=== PATIENT | male | born 1940 | race Caucasian/White ===

== ENCOUNTER 2021-05-16 12:00 | Outpatient (CLI) | payer MEDICARE, BC ==
[~2021-05-16] VITALS: Ht 167.6 cm; Wt 74.8 kg
[2021-05-16] MEDS ORDERED: ROSU10TA2 PO (16:08)
[2021-05-16] MEDS ORDERED: PREN1TAB75 PO (16:08)
[2021-05-16] MEDS ORDERED: PSYL0.5244 PO (16:08)
[2021-05-16] MEDS ORDERED: LISI20TA28 PO (16:08)
[2021-05-16] MEDS ORDERED: ASPI81TA52 PO (16:08)
[2021-05-16] MEDS ORDERED: CLOP75TA15 PO (16:08)
[2021-05-16] MEDS ORDERED: HYDR4TAB45 PO (16:08)
[2021-05-16] MEDS ORDERED: CARV3.122 PO (16:08)
[2021-05-16 16:11] LABS: COLOR,URINE YELLOW (Yellow); GLUCOSE, URINE NEGATIVE (Neg); KETONES,URINE NEGATIVE (Neg); LEUKOCYTE ESTERASE ,URINE NEGATIVE (Neg); NITRITES, URINE NEGATIVE (Neg); OCCULT BLOOD,URINE NEGATIVE (Neg); PH,URINE 5.5 (4.8-8.0); PROTEIN,URINE TRACE mg/dl (Neg); UROBILINOGEN,URINE 0.2 E.U/dL (0.2-1.0)
[2021-05-16 16:19] LABS: PRE OP PROTIME 10.7 SECONDS (9.0-12.0)
[2021-05-16 16:20] LABS: BACTERIA,URINE FEW /HPF (Neg); CLARITY,URINE SLIGHTLY CLOUDY (Clear); RBC,URINE 0-2 /HPF (0-2); SQUAMOUS EPITHELIAL CELL,UR FEW /LPF (FEW); UA COLLECTION TYPE CLN CATCH MIDSTREAM
[2021-05-16 16:21] LABS: WBC CLUMPS,URINE FEW /HPF (NEGATIVE)
[2021-05-16 16:26] LABS: ALBUMIN 3.5 G/DL (3.4-5.0); ALBUMIN/GLOBULIN RATIO 1.2 (1.1-1.5); ALKALINE PHOSPHATASE 79 IU/L (46-116); BLOOD UREA NITROGEN 28 MG/DL (7-18); BUN/CREATININE RATIO 22.4 (5.4-32.0); CALCIUM 8.8 MG/DL (8.5-10.1); CHLORIDE 108 MMOL/L (99-107); CREATININE 1.25 MG/DL (0.60-1.10); PRE OP ALT 13 U/L (30-65); PRE OP ANION GAP 9 (8-16); PRE OP AST 13 U/L (10-37); PRE OP BILIRUB, TOTAL 0.2 MG/DL (0.0-1.0); PRE OP GLUCOSE 96 MG/DL (70-104); PRE OP POTASSIUM 4.6 MMOL/L (3.4-5.1); PRE OP SODIUM 143 MMOL/L (135-145); TOTAL CARBON DIOXIDE 26.1 MMOL/L (24-32); TOTAL PROTEIN 6.5 G/DL (6.4-8.2); eGFR 55 ML/MIN
[2021-05-17] MEDS ORDERED: LISI2.5T14 PO (15:35)
[2021-05-17] MEDS ORDERED: NITR0.4T51 SL (15:37)
[2021-05-18] MEDS ORDERED: ringers solution, lacted 1,000 ML IV SCH (05:00)
[2021-05-18] MEDS ORDERED: cefazolin/dext.iso 2gm/50ml IV ONE (05:30)
[2021-05-18] MEDS ORDERED: famotidine 20mg tablet PO ONE (05:30)
[2021-05-18] MEDS ORDERED: DOCUMENT DATE & TIME OF BETA-BLOCKER PO ONE (05:30)
[2021-05-18] MEDS ORDERED: midazolam 1 mg/ML 2ml injection ONE (07:13)
[2021-05-18] MEDS ORDERED: fentaNYL /PF 50mcg/ml 5ml ampule ONE (07:13)
[2021-05-18] MEDS ORDERED: dexamethasone sod phosphate 4mg/ml inj. ONE (07:14)
[2021-05-18] MEDS ORDERED: rocuronium 10mg/ml inj IV ONE (07:14)
[2021-05-18] MEDS ORDERED: LIDOcaine 2% (20mg/ml) 5ml vial ONE (07:14)
[2021-05-18] MEDS ORDERED: propofol inj 20 ML IV ONE (07:14)
[2021-05-18] MEDS ORDERED: ondansetron/PF 4mg/2ml inj ONE (07:15)
[2021-05-18] MEDS ORDERED: albumin (Human) 5% 250ml 250 ML IV ONE ×2 (07:15)
[2021-05-18] MEDS ORDERED: BUPIVACAINE liposomal/PF 13.3 MG/ML vial IM ONE (07:26)
[2021-05-18] MEDS ORDERED: BUPIVAcaine 0.5% inj/PF 30 ML ONE (07:26)
[2021-05-18] MEDS ORDERED: labetalol 20mg/4ml (5mg/ml) syringe IV ONE (08:14)
[2021-05-18] MEDS ORDERED: glycopyrrolate 0.2mg/ml inj ONE (08:33)
[2021-05-18] MEDS ORDERED: neostigmine methylsulfate 1 MG/ML 10ml vial ONE (08:33)
[2021-05-18] MEDS ORDERED: morphine 10mg/ml inj. ONE (08:50)
[2021-05-18] MEDS ORDERED: morphine 4 MG/ML inj SYRINge ONE ×3 (08:59→09:15)
[2021-05-18] MEDS ORDERED: fentaNYL/PF 50MCG/1 ML 2ML syringe ONE (09:03)
== END 2021-05-16 23:59 | disposition home or self-care (01) ==
LOC: PRE-OP 12:00 → EDSTATUS 05-18 12:15
PROVIDERS: ATTEND Surgery
DX: Z01.812 Encounter for preprocedural laboratory examination (principal); Z20.822 Contact with and (suspected) exposure to COVID-19
CPT/HCPCS: 36415; 80053; 81001; 85610; 85730; 86885; 86900; 86901; 86920; 87081; 87088; 87635; C9290; J0690; J1100; J2250; J2270; J2274; J2405; J2704; J2710; J3010; J3490; J7120; P9045; S0020

== ENCOUNTER 2021-05-17 12:38 | Inpatient (IN) | payer MEDICARE, BC ==
[~2021-05-17] VITALS: Ht 170.2 cm; Wt 76.2 kg
[~2021-05-17 12:38] MED LIST: ASPI81TA52 PO; CARV3.122 PO; CLOP75TA15 PO; HYDR4TAB45 PO; LISI20TA28 PO; PREN1TAB75 PO; PSYL0.5244 PO; ROSU10TA2 PO
[2021-05-17 13:18] LABS: BASOPHILS # (AUTO) 0.1 X10'3 (0-0.2); EOSINOPHILS # (AUTO) 0.2 X10'3 (0-0.9); EOSINOPHILS % (AUTO) 3.9 % (0-6); LYMPHOCYTES # (AUTO) 0.6 X10'3 (1.1-4.8); LYMPHOCYTES % (AUTO) 13.3 % (21-51); MEAN CORPUSCULAR HEMOGLOBIN 24.8 PG (27.0-31.0); MEAN CORPUSCULAR HGB CONC 31.6 g/dL (33.0-36.5); MEAN CORPUSCULAR VOLUME 78.5 FL (78-98); MONOCYTES # (AUTO) 0.5 X10'3 (0-0.9); MONOCYTES % (AUTO) 12.4 % (2-12); NEUTROPHILS # (AUTO) 2.9 X10'3 (1.8-7.7); NEUTROPHILS % (AUTO) 68.4 % (42-75); PLATELET COUNT 401 X10'3 (140-440); RED BLOOD COUNT 2.65 X10'6 (4.70-6.10); RED CELL DISTRIBUTION WIDTH 21.9 % (11.5-14.5); WHITE BLOOD COUNT 4.3 X10'3 (4.5-11.0)
[2021-05-17 13:20] LABS: HEMATOCRIT 20.8 % (42.0-52.0); HEMOGLOBIN 6.6 g/dl (14.0-17.9)
[2021-05-17 13:31] LABS: APTT 26 SECONDS (22-32)
[2021-05-17 13:48] LABS: ANISOCYTOSIS 3+; ELLIPTOCYTES 1+; PLATELET ESTIMATE NORMAL; POIKILOCYTOSIS 1+
[2021-05-17 13:49] LABS: ACANTHOCYTES 1+; HYPOCHROMASIA 1+; MICROCYTOSIS 2+; SCHISTOCYTES FEW
[2021-05-17 14:09] LABS: ALANINE AMINOTRANSFERASE 12 U/L (12-78); ALBUMIN 3.5 G/DL (3.4-5.0); ALBUMIN/GLOBULIN RATIO 1.2 (1.1-1.5); ALKALINE PHOSPHATASE 80 IU/L (46-116); ANION GAP 9 (8-16); ASPARTATE AMINO TRANSFERASE 13 U/L (10-37); BILIRUBIN,TOTAL 0.3 MG/DL (0.1-1.0); BLOOD UREA NITROGEN 25 MG/DL (7-18); BUN/CREATININE RATIO 19.8 (5.4-32.0); CALCIUM 8.6 MG/DL (8.5-10.1); CHLORIDE 106 MMOL/L (99-107); CREATININE 1.26 MG/DL (0.60-1.10); GLUCOSE 86 MG/DL (70-104); POTASSIUM 4.5 MMOL/L (3.5-5.1); SODIUM 140 MMOL/L (135-145); TOTAL CARBON DIOXIDE 25.3 MMOL/L (24-32); TOTAL PROTEIN 6.5 G/DL (6.4-8.2); eGFR 55 ML/MIN
[2021-05-17] MEDS ORDERED: PEG 3350/Na sulf,bicarb,Cl/KCl oral sol 4 liter bottle PO ONE (15:05)
[2021-05-17] MEDS ORDERED: LISI2.5T14 PO (15:35)
[2021-05-17] MEDS ORDERED: NITR0.4T51 SL (15:37)
[2021-05-17 15:46] VITALS: BP 119/62
[2021-05-17 16:00] VITALS: BP 127/58
[2021-05-17] MEDS ORDERED: mag hydrox/Alum hydrox/simeth 30ml oral suspension PO PRN (16:50)
[2021-05-17] MEDS ORDERED: magnesium Cl slow-release 64mg tablet PO PRN (16:50)
[2021-05-17] MEDS ORDERED: acetaminophen 325mg tablet PO PRN ×2 (16:50)
[2021-05-17] MEDS ORDERED: potassium CL 10mEq/100ml bag 100 ML IV PRN (16:50)
[2021-05-17] MEDS ORDERED: nitroGLYCERIN 0.4mg SUBLingual tab SL PRN (16:50)
[2021-05-17] MEDS ORDERED: magnesium 2GM in 50ml NS 50 ML IV PRN (16:50)
[2021-05-17] MEDS ORDERED: HYDROcodone/acetaminophen 10/325mg tab PO PRN (16:50)
[2021-05-17] MEDS ORDERED: PERFLUTREN PROTEIN-A MICROSPHR (Optison) 0.22 MG/ML 3ML VIAL IV PRN (16:50)
[2021-05-17] MEDS ORDERED: potassium Cl 20 mEq SR tablet PO PRN ×2 (16:50)
[2021-05-17] MEDS ORDERED: HYDROcodone/acetaminophen 5mg/325mg tablet PO PRN (16:50)
[2021-05-17] MEDS ORDERED: magnesium 4gm in 100ml NS 100 ML IV PRN (16:50)
[2021-05-17] MEDS ORDERED: magnesium hydroxide 30ml (MOM) UD suspension PO PRN (16:50)
[2021-05-17] MEDS ORDERED: morphine 2 MG/ML inj. syringe IV PRN (16:50)
[2021-05-17] MEDS ORDERED: HYDROmorphone 2mg tablet PO PRN (17:00)
[2021-05-17 17:11] VITALS: BP 129/62
[2021-05-17 17:29] LABS: HEMOGLOBIN A1C 5.3 % (4.5-6.2)
[2021-05-17] MEDS: normal saline 1000ml 1,000 ML IV SCH ×2 (17:33→20:56)
[2021-05-17 17:54] LABS: CLARITY,URINE CLEAR (Clear); COLOR,URINE YELLOW (Yellow); GLUCOSE, URINE NEGATIVE (Neg); KETONES,URINE NEGATIVE (Neg); LEUKOCYTE ESTERASE ,URINE SMALL (Neg); NITRITES, URINE NEGATIVE (Neg); OCCULT BLOOD,URINE NEGATIVE (Neg); PROTEIN,URINE NEGATIVE (Neg); UROBILINOGEN,URINE 0.2 E.U/dL (0.2-1.0)
[2021-05-17 18:02] LABS: UA COLLECTION TYPE URINAL
[2021-05-17 18:08] LABS: BACTERIA,URINE 1+ /HPF (Neg); RBC,URINE NONE SEEN /HPF (0-2); SQUAMOUS EPITHELIAL CELL,UR FEW /LPF (FEW); WBC,URINE 0-4 /HPF (0-4)
[2021-05-17 20:00] VITALS: BP 133/54
[2021-05-17] MEDS: K and/or MAG REPLACEMENT MC SCH (20:00)
--- NOTE | 2021-05-17 20:00 | NUR ---
Patient transfer from ER to PCU in a stable condition, vital signs stable oriented to room call light within reach bed in lower position will continue to monitor and report changes
[2021-05-17] MEDS: docusate sod 100mg capsule PO SCH (20:55)
[2021-05-17] MEDS: carVEDilol 3.125mg tablet PO SCH (20:55)
[2021-05-17 21:13] LABS: HEMATOCRIT 24.5 % (42.0-52.0); HEMOGLOBIN 7.9 g/dl (14.0-17.9); MEAN CORPUSCULAR HEMOGLOBIN 25.6 PG (27.0-31.0); MEAN CORPUSCULAR HGB CONC 32.2 g/dL (33.0-36.5); MEAN CORPUSCULAR VOLUME 79.6 FL (78-98); MEAN PLATELET VOLUME 7.3 FL (7.4-10.4); PLATELET COUNT 382 X10'3 (140-440); RED BLOOD COUNT 3.08 X10'6 (4.70-6.10); RED CELL DISTRIBUTION WIDTH 21.1 % (11.5-14.5); WHITE BLOOD COUNT 4.8 X10'3 (4.5-11.0)
[2021-05-17 22:00] VITALS: BP 112/45
[2021-05-18] VITALS (17 sets, daily range): BP systolic 133–181; BP diastolic 63–96
[2021-05-18] MEDS: CefTRIAXone/D5W-Rocephin 1gm 100 ML IV SCH ×2 (01:47→20:08)
[2021-05-18] MEDS: morphine 2 MG/ML inj. syringe IV PRN (01:55)
[2021-05-18 03:30] LABS: BASOPHILS # (AUTO) 0.1 X10'3 (0-0.2); BASOPHILS % (AUTO) 1.5 % (0-1); EOSINOPHILS # (AUTO) 0.2 X10'3 (0-0.9); EOSINOPHILS % (AUTO) 3.5 % (0-6); HEMATOCRIT 22.8 % (42.0-52.0); HEMOGLOBIN 7.2 g/dl (14.0-17.9); LYMPHOCYTES # (AUTO) 0.6 X10'3 (1.1-4.8); LYMPHOCYTES % (AUTO) 12.6 % (21-51); MEAN CORPUSCULAR HEMOGLOBIN 25.1 PG (27.0-31.0); MEAN CORPUSCULAR HGB CONC 31.8 g/dL (33.0-36.5); MEAN PLATELET VOLUME 7.4 FL (7.4-10.4); MONOCYTES # (AUTO) 0.6 X10'3 (0-0.9); MONOCYTES % (AUTO) 13.7 % (2-12); NEUTROPHILS # (AUTO) 3.1 X10'3 (1.8-7.7); NEUTROPHILS % (AUTO) 68.7 % (42-75); PLATELET COUNT 354 X10'3 (140-440); RED BLOOD COUNT 2.88 X10'6 (4.70-6.10); RED CELL DISTRIBUTION WIDTH 21.2 % (11.5-14.5); WHITE BLOOD COUNT 4.5 X10'3 (4.5-11.0)
[2021-05-18 03:54] LABS: ALANINE AMINOTRANSFERASE 12 U/L (12-78); ALBUMIN 3.1 G/DL (3.4-5.0); ALBUMIN/GLOBULIN RATIO 1.1 (1.1-1.5); ANION GAP 15 (8-16); ASPARTATE AMINO TRANSFERASE 16 U/L (10-37); BILIRUBIN,TOTAL 0.3 MG/DL (0.1-1.0); BLOOD UREA NITROGEN 20 MG/DL (7-18); BUN/CREATININE RATIO 17.5 (5.4-32.0); CALCIUM 8.2 MG/DL (8.5-10.1); CHLORIDE 108 MMOL/L (99-107); CHOL/HDL RATIO 1.9 (0.00-4.99); CHOLESTEROL 96 MG/DL (0-200); CREATININE 1.14 MG/DL (0.60-1.10); GLUCOSE 87 MG/DL (70-104); HDL CHOLESTEROL 51 MG/DL (35-60); LDL CHOLESTEROL 36 MG/DL (50-100); MAGNESIUM 1.9 MG/DL (1.5-2.4); PHOSPHORUS 2.6 MG/DL (2.3-4.5); SODIUM 146 MMOL/L (135-145); TOTAL CARBON DIOXIDE 23.5 MMOL/L (24-32); TOTAL PROTEIN 5.8 G/DL (6.4-8.2); TRIGLYCERIDES 51 MG/DL (20-135); eGFR 61 ML/MIN
[2021-05-18 05:05] LABS: LARGE PLATELETS FEW; PLATELET ESTIMATE NORMAL
[2021-05-18 05:06] LABS: HYPOCHROMASIA 1+
[2021-05-18 05:07] LABS: ANISOCYTOSIS 3+; MICROCYTOSIS 1+; POIKILOCYTOSIS 1+
[2021-05-18 05:08] LABS: SCHISTOCYTES FEW
[2021-05-18 05:09] LABS: ACANTHOCYTES 1+
--- NOTE | 2021-05-18 06:49 | NUR ---
Problems reprioritized. Patient report given, questions answered & plan of care reviewed with Evelin RN .
[2021-05-18] MEDS ORDERED: labetalol 20mg/4ml (5mg/ml) syringe IV PRN (07:10)
[2021-05-18] MEDS ORDERED: ondansetron/PF 4mg/2ml inj IV PRN (07:10)
[2021-05-18] MEDS ORDERED: hydrALAZINE 20mg/ml inj. IV PRN (07:10)
[2021-05-18] MEDS ORDERED: fentaNYL/PF 50MCG/1 ML 2ML syringe IV PRN ×2 (07:10)
[2021-05-18] MEDS ORDERED: ringers solution, lacted 1,000 ML IV SCH (07:10)
[2021-05-18] MEDS ORDERED: morphine 2 MG/ML inj. syringe IV PRN (07:10)
[2021-05-18] MEDS ORDERED: morphine 10mg/ml inj. ONE (07:25)
[2021-05-18] MEDS ORDERED: dexamethasone sod phosphate 10mg/ml inj ONE (07:25)
[2021-05-18] MEDS ORDERED: cefazolin/dext.iso 2,000MG/50 ML BAG IV ONE (07:25)
[2021-05-18] MEDS ORDERED: ondansetron/PF 4mg/2ml inj ONE (07:25)
[2021-05-18] MEDS ORDERED: propofol 10mg/ml 20ml vial IV ONE (07:25)
[2021-05-18] MEDS ORDERED: neostigmine methylsulfate 1 MG/ML 10ml vial ONE (07:25)
[2021-05-18] MEDS ORDERED: labetalol 20mg/4ml (5mg/ml) syringe IV ONE (07:25)
[2021-05-18] MEDS ORDERED: glycopyrrolate 0.2mg/ml inj ONE (07:25)
[2021-05-18] MEDS ORDERED: sevoflurane 250ml liquid IH ONE (07:25)
[2021-05-18] MEDS ORDERED: fentaNYL /PF 50mcg/ml 5ml ampule ONE (07:25)
[2021-05-18] MEDS ORDERED: LIDOcaine 2% (20mg/ml) 5ml vial ONE (07:25)
[2021-05-18] MEDS ORDERED: midazolam 1 mg/ML 2ml injection ONE (07:25)
[2021-05-18] MEDS ORDERED: albumin (Human) 5% 250ml BOTTLE IV ONE (07:25)
[2021-05-18] MEDS: psyllium seed 3.4 gm packet PO SCH (08:00)
[2021-05-18] MEDS: lisinopril 2.5mg tablet PO SCH (08:00)
[2021-05-18] MEDS: atorvastatin 20mg tablet PO SCH (08:00)
[2021-05-18] MEDS: K and/or MAG REPLACEMENT MC SCH ×2 (08:00→20:00)
[2021-05-18] MEDS: docusate sod 100mg capsule PO SCH ×2 (08:00→20:08)
[2021-05-18] MEDS: carVEDilol 3.125mg tablet PO SCH ×2 (08:00→20:08)
[2021-05-18] MEDS: multivitamins, therapeutics tablet PO SCH (08:00)
--- NOTE | 2021-05-18 08:56 | NUR ---
Received from OR via BED , accompanied by Anesthesiologist KARRIE and report given by Anesthesiolgist.
[2021-05-18] MEDS: morphine 4 MG/ML inj SYRINge IV PRN ×3 (09:02→09:19)
[2021-05-18] MEDS ORDERED: naloxone 0.4 mg/ml inj IV PRN (09:15)
--- NOTE | 2021-05-18 09:45 | NUR ---
10 LITERS WITH MASK 02, RIGHT FOREARM 18 GUAGE INTACT, ISLAND DRESSING SPOTTY, WILL CONTINUE TO ASSESS, F/C, IN A LOT OF PAIN ADMIN PAIN MEDS AND ASSESSING CONTINUALLY. CALLED DR HANDLEY FOR AN ORDER OF DILAUDID FELT PULLER 100MG. WAITING FOR CADD TO BE DELIVERED. CALLED PHARMACY TO CHECK ON PAIN MED, STILL WAITING. Addendum: 05/18/21 at 0950 by Adina Ortiz RN Amended: Links added.
[2021-05-18] MEDS ORDERED: meperidine/PF 25mg/ml syringe IV PRN (09:55)
[2021-05-18] MEDS ORDERED: acetaminophen 1,000mg/100ml IV 100 ML IV PRN (09:55)
[2021-05-18] MEDS: HYDROmorph./NS 0.2 mg/ml CADD 100 ML IV SCH (10:14)
--- NOTE | 2021-05-18 10:32 | NUR ---
CALLED REPORT TO LUCERO AT 1025. VSThomas, ON 2 LITERS 02 AT 98%, PATIENTS BELONGINGS WITH HIM, ALL QUESTIONS ANSWERED. Addendum: 05/18/21 at 1034 by Adina Ortiz RN Amended: Links added.
--- NOTE | 2021-05-18 10:36 | NUR ---
TRANSFER: PATIENT HAS MET ALL CRITERIA FOR TRANSFER TO THE PCU/FLOOR. VSS. DRESSINGS INTACT. BED LOW, CALL LIGHT PRESENT AND 2 RAILS UP. RN PRESENT TO ACCEPT CARE OF PATIENT AND REPORT HAS BEEN CALLED. ALL QUESTIONS ANSWERED TO ACCEPTING RN. FLOAT NURSE NOT AVAILABLE, LET CHARGE NURSE KNOW THE IMPORTANCE OF PUSHING IS Q 1 HR WHILE AWAKE. Addendum: 05/18/21 at 1059 by Adina Ortiz RN Amended: Links added.
[2021-05-18 12:37] LABS: MEAN CORPUSCULAR HEMOGLOBIN 25.1 PG (27.0-31.0); MEAN CORPUSCULAR HGB CONC 31.1 g/dL (33.0-36.5); MEAN CORPUSCULAR VOLUME 80.7 FL (78-98); MEAN PLATELET VOLUME 7.5 FL (7.4-10.4); PLATELET COUNT 445 X10'3 (140-440); RED BLOOD COUNT 2.67 X10'6 (4.70-6.10); RED CELL DISTRIBUTION WIDTH 21.4 % (11.5-14.5); WHITE BLOOD COUNT 15.9 X10'3 (4.5-11.0)
[2021-05-18 12:45] LABS: HEMATOCRIT 21.5 % (42.0-52.0); HEMOGLOBIN 6.7 g/dl (14.0-17.9)
--- NOTE | 2021-05-18 13:43 | NUR ---
Malnutrition Consult: Pt admit DX anemia w/ colon CA s/p open resection of ascending colon today per EMR. NPO at this time though would benefit from advancement to low-residue diet as medically indicated post-op. Pt reports 2-13 pounds wt loss per RN Malnutrition Screen. Pt has normal strength, no edema/wounds, appears WD/WN per ER note, and pending scaled wt this admit w/ no prior wt hx in EMR. Pt lacks minimum malnutrition criteria at this time. Will monitor for further malnutrition criteria this admit. Addendum: 05/18/21 at [address] Amended: Links added.
--- NOTE | 2021-05-18 17:15 | NUR ---
Pt went to surgery this am. Notice 2uPRBC held for surgery but not given. Pt HCT 21.5 , HGL 6.7. Page/text regarding orders needed for possible transfusion. Awaiting orders
[2021-05-18] MEDS: normal saline 1000ml 1,000 ML IV SCH (19:30)
[2021-05-19] VITALS (16 sets, daily range): BP systolic 112–166; BP diastolic 43–96
[2021-05-19] MEDS: HYDROmorph./NS 0.2 mg/ml CADD 100 ML IV SCH ×9 (01:00→23:00)
[2021-05-19] MEDS: morphine 2 MG/ML inj. syringe IV PRN ×2 (02:10→08:42)
[2021-05-19] MEDS: metroNIDAZOLE-Flagyl 500mg/NS 100 ML IV SCH ×3 (02:38→20:00)
[2021-05-19 06:37] LABS: BASOPHILS % (AUTO) 0.2 % (0-1); EOSINOPHILS % (AUTO) 0 % (0-6); LYMPHOCYTES # (AUTO) 0.5 X10'3 (1.1-4.8); LYMPHOCYTES % (AUTO) 5.6 % (21-51); MEAN CORPUSCULAR HGB CONC 32.4 g/dL (33.0-36.5); MEAN CORPUSCULAR VOLUME 80.4 FL (78-98); MEAN PLATELET VOLUME 7.5 FL (7.4-10.4); MONOCYTES # (AUTO) 1.2 X10'3 (0-0.9); NEUTROPHILS # (AUTO) 6.5 X10'3 (1.8-7.7); NEUTROPHILS % (AUTO) 79.2 % (42-75); PLATELET COUNT 398 X10'3 (140-440); RED BLOOD COUNT 2.35 X10'6 (4.70-6.10); RED CELL DISTRIBUTION WIDTH 21.6 % (11.5-14.5); WHITE BLOOD COUNT 8.2 X10'3 (4.5-11.0)
--- NOTE | 2021-05-19 06:39 | NUR ---
Problems reprioritized. Patient report given, questions answered & plan of care reviewed with Deann RODRIGUEZ .
[2021-05-19 07:04] LABS: HEMATOCRIT 18.9 % (42.0-52.0); HEMOGLOBIN 6.1 g/dl (14.0-17.9)
--- NOTE | 2021-05-19 07:06 | NUR ---
3029 Jose: Critical labs reported. Hemoglobin 6.1, htc 18.9. made aware of findings.
[2021-05-19 07:15] LABS: ALANINE AMINOTRANSFERASE 14 U/L (12-78); ALBUMIN 3.1 G/DL (3.4-5.0); ALBUMIN/GLOBULIN RATIO 1.2 (1.1-1.5); ALKALINE PHOSPHATASE 59 IU/L (46-116); ANION GAP 16 (8-16); ASPARTATE AMINO TRANSFERASE 21 U/L (10-37); BILIRUBIN,TOTAL 0.2 MG/DL (0.1-1.0); BLOOD UREA NITROGEN 26 MG/DL (7-18); BUN/CREATININE RATIO 18.8 (5.4-32.0); CALCIUM 7.8 MG/DL (8.5-10.1); CHLORIDE 111 MMOL/L (99-107); CREATININE 1.38 MG/DL (0.60-1.10); GLUCOSE 122 MG/DL (70-104); PHOSPHORUS 3.8 MG/DL (2.3-4.5); POTASSIUM 4.3 MMOL/L (3.5-5.1); SODIUM 144 MMOL/L (135-145); TOTAL CARBON DIOXIDE 17.3 MMOL/L (24-32); TOTAL PROTEIN 5.6 G/DL (6.4-8.2); eGFR 49 ML/MIN
[2021-05-19] MEDS ORDERED: aspirin 81mg, enteric-coated 1 TAB TABLET.DR PO SCH (08:00)
[2021-05-19] MEDS ORDERED: clopidogrel 75mg tablet PO SCH (08:00)
[2021-05-19] MEDS: K and/or MAG REPLACEMENT MC SCH ×2 (08:00→20:00)
[2021-05-19] MEDS: psyllium seed 3.4 gm packet PO SCH (09:26)
[2021-05-19] MEDS: carVEDilol 3.125mg tablet PO SCH ×2 (09:27→20:00)
[2021-05-19] MEDS: lisinopril 2.5mg tablet PO SCH (09:27)
[2021-05-19] MEDS: atorvastatin 20mg tablet PO SCH (09:27)
[2021-05-19] MEDS: multivitamins, therapeutics tablet PO SCH (09:27)
[2021-05-19] MEDS: docusate sod 100mg capsule PO SCH ×2 (09:28→20:00)
[2021-05-19 09:30] LABS: ANISOCYTOSIS 3+; PLATELET ESTIMATE NORMAL; TOTAL CELLS COUNTED 100
[2021-05-19 09:31] LABS: BURR CELLS 2+; ELLIPTOCYTES 2+
[2021-05-19 09:36] LABS: POLYCHROMASIA 2+
[2021-05-19 09:37] LABS: TEAR DROP CELLS FEW
[2021-05-19 16:27] LABS: HEMOGLOBIN 8.8 g/dl (14.0-17.9); MEAN CORPUSCULAR HEMOGLOBIN 26.7 PG (27.0-31.0); MEAN CORPUSCULAR HGB CONC 32.6 g/dL (33.0-36.5); MEAN CORPUSCULAR VOLUME 81.9 FL (78-98); MEAN PLATELET VOLUME 7.4 FL (7.4-10.4); PLATELET COUNT 311 X10'3 (140-440); RED CELL DISTRIBUTION WIDTH 19.8 % (11.5-14.5); WHITE BLOOD COUNT 9.2 X10'3 (4.5-11.0)
[2021-05-19] MEDS: ondansetron/PF 4mg/2ml inj IV PRN (17:16)
[2021-05-19] MEDS: CefTRIAXone/D5W-Rocephin 1gm 100 ML IV SCH (20:00)
[2021-05-19] MEDS: sodium bicarbonate (8.4%) inj. 100 MEQ in dextrose 5%-water 1,000 ML IV SCH (23:05)
[2021-05-19] MEDS: CADD PCA waste documentation MC PRN (23:49)
[2021-05-20] MEDS ORDERED: HYDROmorphone (Dilaudid)/NS 0.2 mg/ml 100ml CADD ONE (00:06)
[2021-05-20] MEDS: HYDROmorph./NS 0.2 mg/ml CADD 100 ML IV SCH ×13 (00:06→23:00)
[2021-05-20 02:00] VITALS: BP 155/80
[2021-05-20 06:00] VITALS: BP 146/77
--- NOTE | 2021-05-20 06:27 | NUR ---
Problems reprioritized. Patient report given, questions answered & plan of care reviewed with Billie.
--- NOTE | 2021-05-20 06:30 | NUR ---
Patient in room PCU 3021. I have received report from [place] and had the opportunity to ask questions and assume patient care.
[2021-05-20] MEDS: K and/or MAG REPLACEMENT MC SCH ×2 (08:00→20:00)
[2021-05-20] MEDS: sodium bicarbonate (8.4%) inj. 100 MEQ in dextrose 5%-water 1,000 ML IV SCH ×2 (08:14→10:05)
[2021-05-20] MEDS: metroNIDAZOLE-Flagyl 500mg/NS 100 ML IV SCH ×2 (08:18→19:50)
[2021-05-20] MEDS: atorvastatin 20mg tablet PO SCH (08:22)
[2021-05-20] MEDS: multivitamins, therapeutics tablet PO SCH (08:22)
[2021-05-20] MEDS: carVEDilol 3.125mg tablet PO SCH ×2 (08:22→19:49)
[2021-05-20] MEDS: clopidogrel 75mg tablet PO SCH (08:22)
[2021-05-20] MEDS: aspirin 81mg, enteric-coated 1 TAB TABLET.DR PO SCH (08:22)
[2021-05-20] MEDS: docusate sod 100mg capsule PO SCH ×2 (08:23→19:49)
[2021-05-20] MEDS: lisinopril 2.5mg tablet PO SCH (08:23)
[2021-05-20] MEDS: psyllium seed 3.4 gm packet PO SCH (08:23)
[2021-05-20 08:24] LABS: BASOPHILS % (AUTO) 0.3 % (0-1); EOSINOPHILS % (AUTO) 0.1 % (0-6); HEMATOCRIT 26.5 % (42.0-52.0); HEMOGLOBIN 8.5 g/dl (14.0-17.9); LYMPHOCYTES # (AUTO) 0.4 X10'3 (1.1-4.8); LYMPHOCYTES % (AUTO) 3.1 % (21-51); MEAN CORPUSCULAR HEMOGLOBIN 26.1 PG (27.0-31.0); MEAN CORPUSCULAR HGB CONC 32.1 g/dL (33.0-36.5); MEAN CORPUSCULAR VOLUME 81.3 FL (78-98); MEAN PLATELET VOLUME 7.7 FL (7.4-10.4); MONOCYTES # (AUTO) 0.9 X10'3 (0-0.9); NEUTROPHILS # (AUTO) 10.4 X10'3 (1.8-7.7); NEUTROPHILS % (AUTO) 88.5 % (42-75); PLATELET COUNT 329 X10'3 (140-440); RED BLOOD COUNT 3.26 X10'6 (4.70-6.10); RED CELL DISTRIBUTION WIDTH 19.8 % (11.5-14.5); WHITE BLOOD COUNT 11.7 X10'3 (4.5-11.0)
[2021-05-20 08:43] LABS: ALANINE AMINOTRANSFERASE 17 U/L (12-78); ALBUMIN 2.7 G/DL (3.4-5.0); ALBUMIN/GLOBULIN RATIO 1.2 (1.1-1.5); ALKALINE PHOSPHATASE 57 IU/L (46-116); ANION GAP 12 (8-16); ASPARTATE AMINO TRANSFERASE 24 U/L (10-37); BILIRUBIN,TOTAL 0.4 MG/DL (0.1-1.0); BLOOD UREA NITROGEN 22 MG/DL (7-18); BUN/CREATININE RATIO 18.2 (5.4-32.0); CALCIUM 7.8 MG/DL (8.5-10.1); CHLORIDE 109 MMOL/L (99-107); CREATININE 1.21 MG/DL (0.60-1.10); GLUCOSE 104 MG/DL (70-104); MAGNESIUM 1.8 MG/DL (1.5-2.4); PHOSPHORUS 2.6 MG/DL (2.3-4.5); POTASSIUM 3.8 MMOL/L (3.5-5.1); SODIUM 144 MMOL/L (135-145); TOTAL CARBON DIOXIDE 22.8 MMOL/L (24-32); eGFR 57 ML/MIN
[2021-05-20] MEDS: ondansetron/PF 4mg/2ml inj IV PRN (08:45)
--- NOTE | 2021-05-20 10:02 | NUR ---
Pt vomitted coffee ground emesis during medpass. Zofran administered. MD Magallon informed and ordered protonix drip.
[2021-05-20 11:00] VITALS: BP 123/79
[2021-05-20 15:00] VITALS: BP 131/74
[2021-05-20 18:00] VITALS: BP 135/75
[2021-05-20] MEDS: pantoprazole 40MG/NS 100ML BAG 100 ML IV SCH ×3 (18:28→22:10)
--- NOTE | 2021-05-20 18:31 | NUR ---
Patient in room PCU 3021. I have received report from PILAR RODRIGUEZ and had the opportunity to ask questions and assume patient care.
[2021-05-20] MEDS: CefTRIAXone/D5W-Rocephin 1gm 100 ML IV SCH (19:33)
[2021-05-20 22:00] VITALS: BP 134/74
[2021-05-21] VITALS (9 sets, daily range): BP systolic 136–149; BP diastolic 69–77
[2021-05-21] MEDS: HYDROmorph./NS 0.2 mg/ml CADD 100 ML IV SCH ×12 (01:00→23:00)
--- NOTE | 2021-05-21 01:42 | NUR ---
PT SITTING UP ON EDGE OF BED, STATED "EVERYTIME I CLOSE MY EYES I THINK ABOUT DYING". DID NOT ADD MORE TO THIS AND DENIED NEED TO DISCUSS FURTHER WHEN I OFFERED. DENIES NEED TO VOID, HAS BEEN CLOSE TO 8 HRS SINCE F/C DISCONTINUED ON EARLY SHIFT. BLADDER SCANNED FOR 111ML'S. WILL CONTINUE TO MONITOR. PT STATED "HAVING FLATUS". CALL LIGHT IN REACH.
[2021-05-21] MEDS: pantoprazole 40MG/NS 100ML BAG 100 ML IV SCH ×5 (02:45→23:00)
--- NOTE | 2021-05-21 06:21 | NUR ---
REPORT GIVEN TO PILAR RODRIGUEZ, PATIENT HAD 2 VERY SMALL "BM'S", THOUGH MOSTLY BRIGHT RED BLOOD WITH SMALL AMT OF STOOL. APPROX AMT 20ML. HAVE PATIENT ON BEDPAN NOW HE STATED HE FEELS LIKE HE MAY HAVE ANOTHER BM. HAVE REPORTED THIS TO MICHAEL.
--- NOTE | 2021-05-21 06:34 | NUR ---
Problems reprioritized. Patient report given, questions answered & plan of care reviewed with Suzie RODRIGUEZ.
--- NOTE | 2021-05-21 06:35 | NUR ---
Problems reprioritized. Patient report given, questions answered & plan of care reviewed with MICHAEL Zacarias.
[2021-05-21] MEDS: K and/or MAG REPLACEMENT MC SCH ×2 (08:00→20:00)
[2021-05-21] MEDS: docusate sod 100mg capsule PO SCH ×2 (08:00→20:00)
[2021-05-21] MEDS: psyllium seed 3.4 gm packet PO SCH (08:00)
[2021-05-21] MEDS: aspirin 81mg, enteric-coated 1 TAB TABLET.DR PO SCH (08:00)
[2021-05-21] MEDS: clopidogrel 75mg tablet PO SCH (08:00)
[2021-05-21 08:10] LABS: BASOPHILS # (AUTO) 0.1 X10'3 (0-0.2); EOSINOPHILS % (AUTO) 0.4 % (0-6); HEMATOCRIT 25.1 % (42.0-52.0); HEMOGLOBIN 7.9 g/dl (14.0-17.9); LYMPHOCYTES # (AUTO) 0.4 X10'3 (1.1-4.8); LYMPHOCYTES % (AUTO) 3.1 % (21-51); MEAN CORPUSCULAR HEMOGLOBIN 26.2 PG (27.0-31.0); MEAN CORPUSCULAR HGB CONC 31.5 g/dL (33.0-36.5); MEAN CORPUSCULAR VOLUME 83.1 FL (78-98); MEAN PLATELET VOLUME 7.5 FL (7.4-10.4); MONOCYTES % (AUTO) 7.5 % (2-12); PLATELET COUNT 312 X10'3 (140-440); RED BLOOD COUNT 3.01 X10'6 (4.70-6.10); WHITE BLOOD COUNT 13.7 X10'3 (4.5-11.0)
--- NOTE | 2021-05-21 08:14 | NUR ---
DR. Magallon paged in regards to bloody stool #2 on day shift, 2 reported from shift commander nurse. Will continue to monitor. Pt's hgb decreased from 8.8 to 7.9. made aware.
[2021-05-21 08:38] LABS: ALANINE AMINOTRANSFERASE 16 U/L (12-78); ALBUMIN 2.5 G/DL (3.4-5.0); ALBUMIN/GLOBULIN RATIO 1.1 (1.1-1.5); ALKALINE PHOSPHATASE 52 IU/L (46-116); ANION GAP 14 (8-16); ASPARTATE AMINO TRANSFERASE 16 U/L (10-37); BILIRUBIN,TOTAL 0.3 MG/DL (0.1-1.0); BLOOD UREA NITROGEN 28 MG/DL (7-18); BUN/CREATININE RATIO 23.7 (5.4-32.0); CHLORIDE 110 MMOL/L (99-107); CREATININE 1.18 MG/DL (0.60-1.10); GLUCOSE 96 MG/DL (70-104); MAGNESIUM 1.9 MG/DL (1.5-2.4); PHOSPHORUS 2.1 MG/DL (2.3-4.5); POTASSIUM 3.8 MMOL/L (3.5-5.1); SODIUM 145 MMOL/L (135-145); TOTAL CARBON DIOXIDE 20.8 MMOL/L (24-32); TOTAL PROTEIN 4.8 G/DL (6.4-8.2); eGFR 59 ML/MIN
[2021-05-21] MEDS: atorvastatin 20mg tablet PO SCH (08:39)
[2021-05-21] MEDS: carVEDilol 3.125mg tablet PO SCH ×2 (08:39→19:50)
[2021-05-21] MEDS: metroNIDAZOLE-Flagyl 500mg/NS 100 ML IV SCH ×2 (08:40→19:50)
[2021-05-21] MEDS: multivitamins, therapeutics tablet PO SCH (08:40)
[2021-05-21] MEDS: lisinopril 2.5mg tablet PO SCH (08:42)
[2021-05-21] MEDS: sodium bicarbonate (8.4%) inj. 100 MEQ in dextrose 5%-water 1,000 ML IV SCH (08:47)
[2021-05-21 08:48] LABS: ANISOCYTOSIS 2+; ELLIPTOCYTES 1+; MICROCYTOSIS 1+; PLATELET ESTIMATE DECREASED; POIKILOCYTOSIS 1+
--- NOTE | 2021-05-21 15:45 | NUR ---
Surgeon Dr. Roca made aware of active bleeding, ordered a transfusion and hemogram for patient. Family concerned about treatment options for patient. Charge nurse and MD Roca made aware.
[2021-05-21] MEDS: ondansetron/PF 4mg/2ml inj IV PRN (16:53)
--- NOTE | 2021-05-21 18:35 | NUR ---
Problems reprioritized. Patient report given, questions answered & plan of care reviewed with Suzie.
[2021-05-21 19:24] LABS: HEMATOCRIT 25.7 % (42.0-52.0); HEMOGLOBIN 8.5 g/dl (14.0-17.9); MEAN CORPUSCULAR HEMOGLOBIN 27.2 PG (27.0-31.0); MEAN CORPUSCULAR VOLUME 82.5 FL (78-98); MEAN PLATELET VOLUME 7.4 FL (7.4-10.4); PLATELET COUNT 286 X10'3 (140-440); RED BLOOD COUNT 3.12 X10'6 (4.70-6.10); RED CELL DISTRIBUTION WIDTH 18.8 % (11.5-14.5)
[2021-05-21] MEDS: CefTRIAXone/D5W-Rocephin 1gm 50 ML IV SCH (19:50)
[2021-05-21] MEDS: temazepam 15mg capsule PO PRN (21:06)
[2021-05-22] MEDS: HYDROmorph./NS 0.2 mg/ml CADD 100 ML IV SCH ×12 (01:00→23:00)
[2021-05-22] MEDS: pantoprazole 40MG/NS 100ML BAG 100 ML IV SCH ×5 (03:53→20:01)
[2021-05-22] MEDS: sodium bicarbonate (8.4%) inj. 100 MEQ in dextrose 5%-water 1,000 ML IV SCH (04:12)
--- NOTE | 2021-05-22 06:32 | NUR ---
Problems reprioritized. Patient report given, questions answered & plan of care reviewed with MICHAEL Zacarias.
--- NOTE | 2021-05-22 06:35 | NUR ---
Problems reprioritized. Patient report given, questions answered & plan of care reviewed with Suzie RODRIGUEZ.
[2021-05-22 07:00] LABS: BASOPHILS % (AUTO) 0.3 % (0-1); EOSINOPHILS # (AUTO) 0.2 X10'3 (0-0.9); HEMATOCRIT 24.6 % (42.0-52.0); HEMOGLOBIN 8.2 g/dl (14.0-17.9); LYMPHOCYTES # (AUTO) 0.4 X10'3 (1.1-4.8); LYMPHOCYTES % (AUTO) 3.8 % (21-51); MEAN CORPUSCULAR HEMOGLOBIN 27.6 PG (27.0-31.0); MEAN CORPUSCULAR HGB CONC 33.2 g/dL (33.0-36.5); MEAN CORPUSCULAR VOLUME 83.1 FL (78-98); MEAN PLATELET VOLUME 7.6 FL (7.4-10.4); MONOCYTES # (AUTO) 0.8 X10'3 (0-0.9); MONOCYTES % (AUTO) 8.5 % (2-12); NEUTROPHILS # (AUTO) 8.2 X10'3 (1.8-7.7); NEUTROPHILS % (AUTO) 85.4 % (42-75); PLATELET COUNT 248 X10'3 (140-440); RED BLOOD COUNT 2.96 X10'6 (4.70-6.10); RED CELL DISTRIBUTION WIDTH 18.7 % (11.5-14.5); WHITE BLOOD COUNT 9.6 X10'3 (4.5-11.0)
[2021-05-22] MEDS: psyllium seed 3.4 gm packet PO SCH (08:00)
[2021-05-22] MEDS: docusate sod 100mg capsule PO SCH ×2 (08:00→20:00)
[2021-05-22] MEDS: K and/or MAG REPLACEMENT MC SCH ×2 (08:00→20:00)
[2021-05-22 08:08] LABS: ALANINE AMINOTRANSFERASE 16 U/L (12-78); ALBUMIN 2.4 G/DL (3.4-5.0); ALBUMIN/GLOBULIN RATIO 1.1 (1.1-1.5); ALKALINE PHOSPHATASE 48 IU/L (46-116); ANION GAP 12 (8-16); ASPARTATE AMINO TRANSFERASE 15 U/L (10-37); BILIRUBIN,TOTAL 0.3 MG/DL (0.1-1.0); BLOOD UREA NITROGEN 27 MG/DL (7-18); BUN/CREATININE RATIO 24.1 (5.4-32.0); CALCIUM 7.4 MG/DL (8.5-10.1); CHLORIDE 113 MMOL/L (99-107); CREATININE 1.12 MG/DL (0.60-1.10); GLUCOSE 94 MG/DL (70-104); MAGNESIUM 1.7 MG/DL (1.5-2.4); PHOSPHORUS 2.1 MG/DL (2.3-4.5); POTASSIUM 3.6 MMOL/L (3.5-5.1); SODIUM 146 MMOL/L (135-145); TOTAL CARBON DIOXIDE 21.4 MMOL/L (24-32); TOTAL PROTEIN 4.5 G/DL (6.4-8.2); eGFR 63 ML/MIN
[2021-05-22] MEDS: carVEDilol 3.125mg tablet PO SCH ×2 (08:49→20:01)
[2021-05-22] MEDS: lisinopril 2.5mg tablet PO SCH (08:49)
[2021-05-22] MEDS: atorvastatin 20mg tablet PO SCH (08:49)
[2021-05-22] MEDS: multivitamins, therapeutics tablet PO SCH (08:49)
[2021-05-22] MEDS: metroNIDAZOLE-Flagyl 500mg/NS 100 ML IV SCH ×2 (08:50→19:53)
--- NOTE | 2021-05-22 09:29 | NUR ---
Initial: Pt admit DX anemia w/ colon CA s/p open resection of ascending colon this admit per EMR. Pt has been NPO since admit (5days) and had bloody BMs on 05/21 per EMR. Pt at high risk for developing malnutrition if diet can not be advanced. Recommendation is for low fiber diet once medically appropriate. Pt receiving NaBicarb/D5 at 50ml/hr providing 204kcals/day. Limited nutrition interventions at this time, will continue to monitor. Recs: 1. Advance to low fiber diet as medically indicated 2. Consider Nicolas smoothies once diet advanced 3. Bowel care per MD 4. Scaled wts this admit Addendum: 05/22/21 at [address] Amended: Links added.
--- NOTE | 2021-05-22 09:38 | NUR ---
MD Magallon met with pt this morning. Suggested hemogram q8 and continue to monitor hemoglobin since the patient is actively bleeding bloody stools.
[2021-05-22 09:39] LABS: ANISOCYTOSIS 2+; MICROCYTOSIS 1+; PLATELET ESTIMATE NORMAL; POIKILOCYTOSIS 1+
[2021-05-22 09:40] LABS: ELLIPTOCYTES 1+; SCHISTOCYTES FEW
[2021-05-22] MEDS ORDERED: morphine 2 MG/ML inj. syringe IV ONE (09:40)
[2021-05-22] MEDS ORDERED: HYDROmorphone (Dilaudid)/NS 0.2 mg/ml 100ml CADD ONE (10:28)
[2021-05-22] MEDS: CADD PCA waste documentation MC PRN (11:10)
[2021-05-22 15:01] LABS: HEMATOCRIT 25.6 % (42.0-52.0); HEMOGLOBIN 8.5 g/dl (14.0-17.9); MEAN CORPUSCULAR HEMOGLOBIN 27.3 PG (27.0-31.0); MEAN CORPUSCULAR HGB CONC 32.9 g/dL (33.0-36.5); MEAN CORPUSCULAR VOLUME 82.9 FL (78-98); MEAN PLATELET VOLUME 7.6 FL (7.4-10.4); PLATELET COUNT 257 X10'3 (140-440); RED BLOOD COUNT 3.09 X10'6 (4.70-6.10); WHITE BLOOD COUNT 9.9 X10'3 (4.5-11.0)
[2021-05-22 18:00] VITALS: BP 124/51
--- NOTE | 2021-05-22 18:38 | NUR ---
Problems reprioritized. Patient report given, questions answered & plan of care reviewed with Autumn.
[2021-05-22] MEDS: CefTRIAXone/D5W-Rocephin 1gm 50 ML IV SCH (19:52)
[2021-05-23] VITALS (7 sets, daily range): BP systolic 120–146; BP diastolic 46–60
[2021-05-23] MEDS: HYDROmorph./NS 0.2 mg/ml CADD 100 ML IV SCH ×12 (01:00→23:00)
[2021-05-23] MEDS: pantoprazole 40MG/NS 100ML BAG 100 ML IV SCH ×5 (01:00→20:25)
[2021-05-23 01:55] LABS: HEMATOCRIT 23.3 % (42.0-52.0); HEMOGLOBIN 7.8 g/dl (14.0-17.9); MEAN CORPUSCULAR HEMOGLOBIN 27.7 PG (27.0-31.0); MEAN CORPUSCULAR HGB CONC 33.2 g/dL (33.0-36.5); MEAN CORPUSCULAR VOLUME 83.3 FL (78-98); MEAN PLATELET VOLUME 7.4 FL (7.4-10.4); PLATELET COUNT 237 X10'3 (140-440); RED CELL DISTRIBUTION WIDTH 18.6 % (11.5-14.5); WHITE BLOOD COUNT 6.7 X10'3 (4.5-11.0)
[2021-05-23] MEDS: metroNIDAZOLE-Flagyl 500mg/NS 100 ML IV SCH ×2 (07:48→20:00)
[2021-05-23] MEDS: sodium bicarbonate (8.4%) inj. 100 MEQ in dextrose 5%-water 1,000 ML IV SCH (07:49)
[2021-05-23] MEDS: atorvastatin 20mg tablet PO SCH (07:49)
[2021-05-23] MEDS: carVEDilol 3.125mg tablet PO SCH ×3 (07:50→20:25)
[2021-05-23] MEDS: multivitamins, therapeutics tablet PO SCH (07:50)
[2021-05-23] MEDS: lisinopril 2.5mg tablet PO SCH (07:52)
[2021-05-23] MEDS: K and/or MAG REPLACEMENT MC SCH ×2 (08:00→20:00)
[2021-05-23] MEDS: docusate sod 100mg capsule PO SCH ×3 (08:00→20:25)
[2021-05-23] MEDS: psyllium seed 3.4 gm packet PO SCH (08:00)
[2021-05-23 11:50] LABS: HEMATOCRIT 24.7 % (42.0-52.0); HEMOGLOBIN 8.1 g/dl (14.0-17.9); MEAN CORPUSCULAR HEMOGLOBIN 27.5 PG (27.0-31.0); MEAN CORPUSCULAR HGB CONC 32.9 g/dL (33.0-36.5); MEAN CORPUSCULAR VOLUME 83.4 FL (78-98); MEAN PLATELET VOLUME 7.2 FL (7.4-10.4); PLATELET COUNT 267 X10'3 (140-440); RED BLOOD COUNT 2.96 X10'6 (4.70-6.10); RED CELL DISTRIBUTION WIDTH 19.4 % (11.5-14.5); WHITE BLOOD COUNT 7.7 X10'3 (4.5-11.0)
[2021-05-23 17:41] LABS: HEMATOCRIT 24.6 % (42.0-52.0); HEMOGLOBIN 8.1 g/dl (14.0-17.9); MEAN CORPUSCULAR HEMOGLOBIN 27.4 PG (27.0-31.0); MEAN CORPUSCULAR VOLUME 82.9 FL (78-98); MEAN PLATELET VOLUME 7.2 FL (7.4-10.4); PLATELET COUNT 261 X10'3 (140-440); RED BLOOD COUNT 2.96 X10'6 (4.70-6.10); RED CELL DISTRIBUTION WIDTH 19.4 % (11.5-14.5); WHITE BLOOD COUNT 6.5 X10'3 (4.5-11.0)
[2021-05-23] MEDS: CefTRIAXone/D5W-Rocephin 1gm 50 ML IV SCH (20:50)
--- NOTE | 2021-05-23 21:01 | NUR ---
Coreg not given HR 50's.
[2021-05-24] MEDS: sodium bicarbonate (8.4%) inj. 100 MEQ in dextrose 5%-water 1,000 ML IV SCH ×2 (00:12→22:27)
[2021-05-24] MEDS: HYDROmorph./NS 0.2 mg/ml CADD 100 ML IV SCH ×8 (01:00→14:51)
[2021-05-24] MEDS: pantoprazole 40MG/NS 100ML BAG 100 ML IV SCH ×5 (01:00→19:56)
[2021-05-24 01:32] LABS: HEMATOCRIT 28.5 % (42.0-52.0); HEMOGLOBIN 9.4 g/dl (14.0-17.9); MEAN CORPUSCULAR HEMOGLOBIN 27.4 PG (27.0-31.0); MEAN CORPUSCULAR HGB CONC 33.1 g/dL (33.0-36.5); MEAN PLATELET VOLUME 7.2 FL (7.4-10.4); PLATELET COUNT 295 X10'3 (140-440); RED BLOOD COUNT 3.44 X10'6 (4.70-6.10); RED CELL DISTRIBUTION WIDTH 19.2 % (11.5-14.5); WHITE BLOOD COUNT 8.7 X10'3 (4.5-11.0)
[2021-05-24] MEDS: temazepam 15mg capsule PO PRN (01:55)
[2021-05-24 02:00] VITALS: BP 151/70
[2021-05-24 06:00] VITALS: BP 180/87
[2021-05-24] MEDS: psyllium seed 3.4 gm packet PO SCH (08:00)
[2021-05-24] MEDS: metroNIDAZOLE-Flagyl 500mg/NS 100 ML IV SCH ×2 (08:00→20:37)
[2021-05-24] MEDS: docusate sod 100mg capsule PO SCH ×2 (08:00→08:01)
[2021-05-24] MEDS: K and/or MAG REPLACEMENT MC SCH ×2 (08:00→18:44)
[2021-05-24] MEDS: multivitamins, therapeutics tablet PO SCH (08:01)
[2021-05-24] MEDS: lisinopril 2.5mg tablet PO SCH (08:02)
[2021-05-24] MEDS: carVEDilol 3.125mg tablet PO SCH ×2 (08:03→20:22)
[2021-05-24] MEDS: atorvastatin 20mg tablet PO SCH (08:03)
[2021-05-24 08:56] LABS: BASOPHILS % (AUTO) 0.2 % (0-1); EOSINOPHILS # (AUTO) 0.4 X10'3 (0-0.9); EOSINOPHILS % (AUTO) 3.9 % (0-6); HEMATOCRIT 30.5 % (42.0-52.0); LYMPHOCYTES # (AUTO) 0.5 X10'3 (1.1-4.8); LYMPHOCYTES % (AUTO) 4.7 % (21-51); MEAN CORPUSCULAR HEMOGLOBIN 27.9 PG (27.0-31.0); MEAN CORPUSCULAR HGB CONC 32.7 g/dL (33.0-36.5); MEAN CORPUSCULAR VOLUME 85.4 FL (78-98); MEAN PLATELET VOLUME 7.3 FL (7.4-10.4); MONOCYTES # (AUTO) 0.9 X10'3 (0-0.9); MONOCYTES % (AUTO) 8.7 % (2-12); NEUTROPHILS # (AUTO) 8.4 X10'3 (1.8-7.7); NEUTROPHILS % (AUTO) 82.5 % (42-75); PLATELET COUNT 308 X10'3 (140-440); RED BLOOD COUNT 3.56 X10'6 (4.70-6.10); RED CELL DISTRIBUTION WIDTH 19.2 % (11.5-14.5); WHITE BLOOD COUNT 10.1 X10'3 (4.5-11.0)
[2021-05-24 10:00] LABS: ALANINE AMINOTRANSFERASE 20 U/L (12-78); ALBUMIN 2.6 G/DL (3.4-5.0); ALBUMIN/GLOBULIN RATIO 1.2 (1.1-1.5); ALKALINE PHOSPHATASE 53 IU/L (46-116); ANION GAP 11 (8-16); ASPARTATE AMINO TRANSFERASE 36 U/L (10-37); BILIRUBIN,TOTAL 0.3 MG/DL (0.1-1.0); BLOOD UREA NITROGEN 18 MG/DL (7-18); CALCIUM 8.1 MG/DL (8.5-10.1); CHLORIDE 113 MMOL/L (99-107); GLUCOSE 118 MG/DL (70-104); POTASSIUM 3.3 MMOL/L (3.5-5.1); SODIUM 146 MMOL/L (135-145); TOTAL CARBON DIOXIDE 21.8 MMOL/L (24-32); TOTAL PROTEIN 4.8 G/DL (6.4-8.2); eGFR 72 ML/MIN
--- NOTE | 2021-05-24 10:34 | NUR ---
Reassessment: Pt advanced to regular diet last night 05/23, previously on clear liquids w/ 56% PO x first two meals. Pt receiving NaBicarb/D5 at 50ml/hr providing 204kcals/day. Per documentation pt w/ liquid stool 05/23, bowel care available PRN. Discussed w/ RN recommendation for low fiber diet given recent GI surgery. Also recommend Nicolas smoothies BIDLD to assist with wound healing. Will continue to follow closely. Recs: 1. Change to low fiber diet if MD agreeable 2. Nicolas smoothies BIDLD; pending MD verification 3. Bowel care per MD 4. Scaled wts this admit Addendum: 05/24/21 at [address] by [address] Provider RD Amended: Links added. Addendum: 05/24/21 at [address] I have reviewed assessment by internet marketing specialist Addendum: 05/24/21 at [address] Received TC from RN stating physician would like to discontinue routine bowel care and continue with regular diet at this time as pt is having high stool output. Noted pt has not received routine bowel care since 05/20 per EMR and a low fiber diet would assist with bowel regularity. Will continue to follow.
[2021-05-24 11:00] VITALS: BP 179/85
[2021-05-24] MEDS ORDERED: potassium Cl 20 mEq SR tablet PO STA (11:11)
--- NOTE | 2021-05-24 11:45 | NUR ---
High BP and Anxiety PAGER ID: [phone] MESSAGE: [phone] Duncan Garcia had a BP of 180/87 at 0600, given ordered 2.5mg Lisinopril, 3.125mg of Coreg at 0800. 1100 BP was 179/85. Can we get PRN BP med? PT states very anxious, can he get something for anxiety? Wanda MANAGER OF BUSINESS ext [phone]
--- NOTE | 2021-05-24 12:34 | NUR ---
Received TC from RN stating physician would like to discontinue routine bowel care and continue with regular diet at this time as pt is having high stool output. Noted pt has not received routine bowel care since 05/20 per EMR and a low fiber diet would assist with bowel regularity. Will continue to follow. Addendum: 05/24/21 at [address] Amended: Links added.
--- NOTE | 2021-05-24 13:39 | NUR ---
Page Sent promotional table spacer PAGER ID: [phone] MESSAGE: [phone] Garcia- per med rec and confirmed with daughter patient takes dilaudid 4 mg tablet QID PRN for pain. is it ok to DC CADD and order po dilaudid as we discussed earlier? PT also hypertensive can I get a PRN for BP? Tyesha [phone]
[2021-05-24 14:16] LABS: OCCULT BLOOD STOOL NEGATIVE (Neg)
[2021-05-24] MEDS ORDERED: hyDRALAzine 10mg tablet PO PRN (14:55)
--- NOTE | 2021-05-24 14:57 | NUR ---
Page Sent promotional table spacer PAGER ID: [phone] MESSAGE: [phone] Jose. Occult stool negative! please restart Plavix. Thank you Tyesha [phone]
[2021-05-24 15:00] VITALS: BP 161/79
[2021-05-24] MEDS: CADD PCA waste documentation MC PRN (16:19)
[2021-05-24 18:00] VITALS: BP 139/88
[2021-05-24] MEDS: JUVEN Smoothie Arginine/Glut./Ca2+Bmb (Juven 19.3pkt) 240ml cup PO SCH (18:00)
[2021-05-24 18:02] LABS: HEMATOCRIT 30.7 % (42.0-52.0); HEMOGLOBIN 10.1 g/dl (14.0-17.9); MEAN CORPUSCULAR HEMOGLOBIN 27.5 PG (27.0-31.0); MEAN CORPUSCULAR HGB CONC 32.9 g/dL (33.0-36.5); MEAN CORPUSCULAR VOLUME 83.4 FL (78-98); MEAN PLATELET VOLUME 7.1 FL (7.4-10.4); PLATELET COUNT 374 X10'3 (140-440); RED BLOOD COUNT 3.68 X10'6 (4.70-6.10); RED CELL DISTRIBUTION WIDTH 19.5 % (11.5-14.5); WHITE BLOOD COUNT 10.7 X10'3 (4.5-11.0)
--- NOTE | 2021-05-24 18:05 | NUR ---
Orientee documentation: I have reviewed and agree with all interventions, performed and documented by Wanda RODRIGUEZ. I do not agree with my orientee's assessment please see my own. I agree with all medications given and documented by my orientee
--- NOTE | 2021-05-24 18:19 | NUR ---
Problems reprioritized. Patient report given, questions answered & plan of care reviewed with Uzma RN. Patient resting comfortably in bed in no acute distress. Daughter at bedside.
[2021-05-24] MEDS: CefTRIAXone/D5W-Rocephin 1gm 50 ML IV SCH (19:56)
[2021-05-24] MEDS: LORazepam 1 MG tablet PO PRN (20:26)
[2021-05-24] MEDS: HYDROmorphone 2mg tablet PO PRN (20:26)
[2021-05-24] MEDS: normal saline 1000ml 1,000 ML IV SCH (21:00)
--- NOTE | 2021-05-24 21:04 | NUR ---
patient has 5 loose stools in the last 3hrs. Patient appears very anxious and restless. All safety measures maintained. Will continue to monitor patient
[2021-05-24 22:00] VITALS: BP 149/78
[2021-05-25] VITALS (7 sets, daily range): BP systolic 107–161; BP diastolic 61–90
[2021-05-25] MEDS: pantoprazole 40MG/NS 100ML BAG 100 ML IV SCH ×3 (01:00→11:00)
[2021-05-25] MEDS: LORazepam 1 MG tablet PO PRN ×2 (04:12→08:13)
[2021-05-25] MEDS: HYDROmorphone 2mg tablet PO PRN ×3 (04:13→12:00)
--- NOTE | 2021-05-25 05:43 | NUR ---
Patient has had several (10) loose stools during this shift. Last episode 0440 today appears to have bright red blood. Dr. cornelius informs. states that it is completely normal and we don't need an occult blood at this time. advices waiting for the H&H result and to continue monitor.
[2021-05-25 06:10] LABS: HEMATOCRIT 26.7 % (42.0-52.0); MEAN CORPUSCULAR HEMOGLOBIN 28.1 PG (27.0-31.0); MEAN CORPUSCULAR HGB CONC 33.8 g/dL (33.0-36.5); MEAN CORPUSCULAR VOLUME 83.1 FL (78-98); MEAN PLATELET VOLUME 7.4 FL (7.4-10.4); PLATELET COUNT 285 X10'3 (140-440); RED BLOOD COUNT 3.22 X10'6 (4.70-6.10); RED CELL DISTRIBUTION WIDTH 19.3 % (11.5-14.5)
[2021-05-25] MEDS: JUVEN Smoothie Arginine/Glut./Ca2+Bmb (Juven 19.3pkt) 240ml cup PO SCH (07:30)
[2021-05-25] MEDS: K and/or MAG REPLACEMENT MC SCH ×2 (08:00→20:00)
[2021-05-25] MEDS: clopidogrel 75mg tablet PO SCH (08:00)
--- NOTE | 2021-05-25 08:00 | NUR ---
held plavix for bright red blood in last stool episode. will continue to monitor patient.
[2021-05-25] MEDS: metroNIDAZOLE-Flagyl 500mg/NS 100 ML IV SCH (08:12)
[2021-05-25] MEDS: carVEDilol 3.125mg tablet PO SCH ×2 (08:12→19:28)
[2021-05-25] MEDS: lisinopril 10 MG tablet PO SCH (08:13)
[2021-05-25] MEDS: multivitamins, therapeutics tablet PO SCH (08:13)
[2021-05-25] MEDS: atorvastatin 20mg tablet PO SCH (08:13)
[2021-05-25 10:20] LABS: HEMATOCRIT 28.4 % (42.0-52.0); HEMOGLOBIN 9.3 g/dl (14.0-17.9); MEAN CORPUSCULAR HEMOGLOBIN 27.6 PG (27.0-31.0); MEAN CORPUSCULAR HGB CONC 32.6 g/dL (33.0-36.5); MEAN CORPUSCULAR VOLUME 84.7 FL (78-98); PLATELET COUNT 297 X10'3 (140-440); RED BLOOD COUNT 3.35 X10'6 (4.70-6.10); RED CELL DISTRIBUTION WIDTH 19.7 % (11.5-14.5); WHITE BLOOD COUNT 9.7 X10'3 (4.5-11.0)
[2021-05-25 10:29] LABS: ALANINE AMINOTRANSFERASE 18 U/L (12-78); ALBUMIN 2.3 G/DL (3.4-5.0); ALKALINE PHOSPHATASE 44 IU/L (46-116); ANION GAP 7 (8-16); ASPARTATE AMINO TRANSFERASE 24 U/L (10-37); BILIRUBIN,TOTAL 0.3 MG/DL (0.1-1.0); BLOOD UREA NITROGEN 18 MG/DL (7-18); BUN/CREATININE RATIO 18.2 (5.4-32.0); CALCIUM 7.8 MG/DL (8.5-10.1); CHLORIDE 112 MMOL/L (99-107); CREATININE 0.99 MG/DL (0.60-1.10); GLUCOSE 137 MG/DL (70-104); SODIUM 144 MMOL/L (135-145); TOTAL CARBON DIOXIDE 24.7 MMOL/L (24-32); TOTAL PROTEIN 4.5 G/DL (6.4-8.2); eGFR 72 ML/MIN
[2021-05-25] MEDS ORDERED: magnesium Cl slow-release 64mg tablet PO PRN (11:30)
[2021-05-25] MEDS ORDERED: magnesium 4gm in 100ml NS 100 ML IV PRN (11:30)
[2021-05-25] MEDS ORDERED: potassium CL 10mEq/100ml bag 100 ML IV PRN (11:30)
[2021-05-25] MEDS: potassium Cl 20 mEq SR tablet PO PRN ×3 (12:01→19:36)
[2021-05-25] MEDS ORDERED: loperamide 2mg capsule PO PRN (12:20)
--- NOTE | 2021-05-25 16:35 | NUR ---
first 1500 vital signs charted was not the correct vital signs for this patient, thus, charted the second 1500 vital signs for this patient is the accurate one. will continue to monitor patient.
[2021-05-25] MEDS: normal saline 1000ml 1,000 ML IV SCH (17:00)
[2021-05-25 17:51] LABS: HEMATOCRIT 26.6 % (42.0-52.0); HEMOGLOBIN 8.7 g/dl (14.0-17.9); MEAN CORPUSCULAR HEMOGLOBIN 27.4 PG (27.0-31.0); MEAN CORPUSCULAR HGB CONC 32.7 g/dL (33.0-36.5); MEAN CORPUSCULAR VOLUME 83.8 FL (78-98); MEAN PLATELET VOLUME 7.5 FL (7.4-10.4); PLATELET COUNT 287 X10'3 (140-440); RED BLOOD COUNT 3.17 X10'6 (4.70-6.10); RED CELL DISTRIBUTION WIDTH 19.6 % (11.5-14.5); WHITE BLOOD COUNT 8.3 X10'3 (4.5-11.0)
--- NOTE | 2021-05-25 18:43 | NUR ---
Problems reprioritized. Patient report given, questions answered & plan of care reviewed with Collette RODRIGUEZ.
[2021-05-25] MEDS: pantoprazole 40mg Tablet.DR PO SCH (19:28)
[2021-05-26] VITALS (10 sets, daily range): BP systolic 131–160; BP diastolic 64–81
[2021-05-26] MEDS: HYDROmorphone 2mg tablet PO PRN ×3 (00:02→20:58)
[2021-05-26] MEDS: LORazepam 1 MG tablet PO PRN ×2 (00:02→08:19)
[2021-05-26] MEDS: K and/or MAG REPLACEMENT MC SCH ×2 (08:00→14:30)
[2021-05-26] MEDS: clopidogrel 75mg tablet PO SCH (08:19)
[2021-05-26] MEDS: atorvastatin 20mg tablet PO SCH (08:20)
[2021-05-26] MEDS: carVEDilol 3.125mg tablet PO SCH ×2 (08:20→20:58)
[2021-05-26] MEDS: pantoprazole 40mg Tablet.DR PO SCH ×3 (08:20→20:58)
[2021-05-26] MEDS: lisinopril 10 MG tablet PO SCH (08:20)
[2021-05-26 08:27] LABS: BASOPHILS # (AUTO) 0.1 X10'3 (0-0.2); BASOPHILS % (AUTO) 0.7 % (0-1); EOSINOPHILS # (AUTO) 0.4 X10'3 (0-0.9); EOSINOPHILS % (AUTO) 5.1 % (0-6); HEMATOCRIT 28.2 % (42.0-52.0); HEMOGLOBIN 9.2 g/dl (14.0-17.9); LYMPHOCYTES # (AUTO) 0.5 X10'3 (1.1-4.8); LYMPHOCYTES % (AUTO) 5.3 % (21-51); MEAN CORPUSCULAR HEMOGLOBIN 27.3 PG (27.0-31.0); MEAN CORPUSCULAR HGB CONC 32.4 g/dL (33.0-36.5); MEAN CORPUSCULAR VOLUME 84.2 FL (78-98); MEAN PLATELET VOLUME 7.5 FL (7.4-10.4); MONOCYTES # (AUTO) 0.9 X10'3 (0-0.9); MONOCYTES % (AUTO) 9.9 % (2-12); NEUTROPHILS # (AUTO) 6.9 X10'3 (1.8-7.7); PLATELET COUNT 288 X10'3 (140-440); RED BLOOD COUNT 3.35 X10'6 (4.70-6.10); RED CELL DISTRIBUTION WIDTH 19.9 % (11.5-14.5); WHITE BLOOD COUNT 8.7 X10'3 (4.5-11.0)
[2021-05-26 09:22] LABS: ALANINE AMINOTRANSFERASE 17 U/L (12-78); ALBUMIN 2.3 G/DL (3.4-5.0); ALBUMIN/GLOBULIN RATIO 0.8 (1.1-1.5); ALKALINE PHOSPHATASE 56 IU/L (46-116); ANION GAP 8 (8-16); ASPARTATE AMINO TRANSFERASE 20 U/L (10-37); BILIRUBIN,TOTAL 0.3 MG/DL (0.1-1.0); BLOOD UREA NITROGEN 14 MG/DL (7-18); BUN/CREATININE RATIO 16.1 (5.4-32.0); CALCIUM 8.1 MG/DL (8.5-10.1); CHLORIDE 111 MMOL/L (99-107); CREATININE 0.87 MG/DL (0.60-1.10); GLUCOSE 92 MG/DL (70-104); MAGNESIUM 1.4 MG/DL (1.5-2.4); POTASSIUM 3.9 MMOL/L (3.5-5.1); SODIUM 143 MMOL/L (135-145); TOTAL CARBON DIOXIDE 23.9 MMOL/L (24-32); TOTAL PROTEIN 5.3 G/DL (6.4-8.2); eGFR 84 ML/MIN
--- NOTE | 2021-05-26 11:57 | NUR ---
WOUND INFECTION EDUCATION PROVIDED BY WOUND CARE 1. Patient instructed to call their primary doctor, or go the ED immediately if any of the following symptoms occur: * Increased pain in wound * Increase in drainage from the wound * Redness in the skin surrounding the wound * Warmth in the skin surrounding the wound * Bleeding from the wound * Temperature of 101 or greater 2. If any of these occur while in the hospital tell a nurse immediately. PRESSURE ULCER EDUCATION: DEFINITION: A pressure ulcer is an area of skin that breaks down when you stay in one position too long. The constant pressure against the skin reduces the blood flow to that area and the affected tissue dies. CAUSES: "Being bedridden or in a wheelchair "Fragile skin "Having a chronic condition, such as diabetes or vascular disease "Inability to move certain parts of your body without assistance "Older age "Incontinence of urine or stool SYMPTOMS: "A reddened area that DOES NOT turn white when pressed on - this can be the beginning of a pressure ulcer "A blister, deep sore or a crater - these can be advanced pressure ulcers FIRST AID: "Relieve the pressure on this area "Keep the area clean and dry "Call your primary doctor if you see any of the above symptoms "DO NOT massage the area "DO NOT use a donut shaped or ring shaped pillow- these actually interfere with the blood flow and cause complications PREVENTION: "Check for pressure ulcers everyday "Change position at least every two hours to relieve pressure "Use items that help relieve pressure- pillows, sheepskin, foam padding, and powders. "Keep skin clean and dry "Eat healthy well balanced meals "Exercise daily IF YOU SEE ANY OF THESE SYMPTOMS WHILE IN THE HOSPITAL - TELL YOUR NURSE IMMEDIATELY. IF YOU SEE ANY OF THESE SYMPTOMS WHILE AT HOME OR HAVE ANY QUESTIONS OR CONCERNS ABOUT PRESSURE ULCERS - CALL YOUR PRIMARY DOCTOR IMMEDIATELY. Addendum: 05/26/21 at 1157 by Mary Golden RN Amended: Links added.
[2021-05-26] MEDS: normal saline 1000ml 1,000 ML IV SCH (13:00)
--- NOTE | 2021-05-26 17:24 | NUR ---
Problems reprioritized. Patient report given, questions answered & plan of care reviewed with Jessica.
--- NOTE | 2021-05-26 17:25 | NUR ---
Arrival to ICU Report received from MICHAEL Mcbride on PCU for this patient. 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 Patient is tachypneic in high 20's to low 30's, satting 97% on RA. All other vitals WNL (see chart). Patient A&O x4, able to follow commands and move all limbs although he appears weak (generalized). Hoyos is placed given ICU level of care and reports of incontinence coupled with volume loss/unknown I&O status. Output is pale and clear. Patient is afebrile and appears to be in very little distress upon arrival. Lung sounds diminished globally, but moving air. Distal pulses, bilaterally +2-3. Dual skin check completed with Rae RODRIGUEZ and myself. Bottom area is excoriated/denuded with no openings. Erythremic regions appear to right hip. Bumpy rash is present to bilateral, lower limbs. Awaiting ICU orders at this time and update on scheduled time for OR.
[2021-05-26] MEDS ORDERED: iohexol 350MG/ML 100ml bottle IV ONE (19:01)
[2021-05-27] VITALS (22 sets, daily range): BP systolic 100–171; BP diastolic 53–86
--- NOTE | 2021-05-27 06:30 | NUR ---
Patient in room ICU 2045. I have received report from Johnna RODRIGUEZ and had the opportunity to ask questions and assume patient care.
[2021-05-27 07:40] LABS: BASOPHILS # (AUTO) 0.1 X10'3 (0-0.2); BASOPHILS % (AUTO) 0.8 % (0-1); EOSINOPHILS # (AUTO) 0.4 X10'3 (0-0.9); EOSINOPHILS % (AUTO) 6.6 % (0-6); HEMATOCRIT 27.7 % (42.0-52.0); HEMOGLOBIN 9.2 g/dl (14.0-17.9); LYMPHOCYTES # (AUTO) 0.5 X10'3 (1.1-4.8); LYMPHOCYTES % (AUTO) 6.9 % (21-51); MEAN CORPUSCULAR HEMOGLOBIN 27.6 PG (27.0-31.0); MEAN CORPUSCULAR HGB CONC 33.2 g/dL (33.0-36.5); MEAN CORPUSCULAR VOLUME 83.2 FL (78-98); MEAN PLATELET VOLUME 7.3 FL (7.4-10.4); MONOCYTES # (AUTO) 0.7 X10'3 (0-0.9); MONOCYTES % (AUTO) 10.6 % (2-12); NEUTROPHILS # (AUTO) 5.1 X10'3 (1.8-7.7); NEUTROPHILS % (AUTO) 75.1 % (42-75); PLATELET COUNT 297 X10'3 (140-440); RED BLOOD COUNT 3.32 X10'6 (4.70-6.10); RED CELL DISTRIBUTION WIDTH 20.1 % (11.5-14.5); WHITE BLOOD COUNT 6.8 X10'3 (4.5-11.0)
[2021-05-27] MEDS: pantoprazole 40mg Tablet.DR PO SCH ×2 (07:56→21:05)
[2021-05-27] MEDS: carVEDilol 3.125mg tablet PO SCH ×2 (07:56→21:05)
[2021-05-27] MEDS: lisinopril 10 MG tablet PO SCH (07:56)
[2021-05-27] MEDS: furosemide 20 MG/2 ML vial IV SCH ×2 (07:56→21:05)
[2021-05-27] MEDS: atorvastatin 20mg tablet PO SCH (07:56)
[2021-05-27] MEDS: K and/or MAG REPLACEMENT MC SCH ×2 (08:00→20:00)
[2021-05-27 08:03] LABS: ALANINE AMINOTRANSFERASE 17 U/L (12-78); ALBUMIN 2.2 G/DL (3.4-5.0); ALBUMIN/GLOBULIN RATIO 0.8 (1.1-1.5); ALKALINE PHOSPHATASE 57 IU/L (46-116); ANION GAP 12 (8-16); ASPARTATE AMINO TRANSFERASE 20 U/L (10-37); BILIRUBIN,TOTAL 0.3 MG/DL (0.1-1.0); BLOOD UREA NITROGEN 12 MG/DL (7-18); BUN/CREATININE RATIO 14.1 (5.4-32.0); CALCIUM 7.6 MG/DL (8.5-10.1); CHLORIDE 109 MMOL/L (99-107); CREATININE 0.85 MG/DL (0.60-1.10); GLUCOSE 76 MG/DL (70-104); MAGNESIUM 2.1 MG/DL (1.5-2.4); POTASSIUM 3.5 MMOL/L (3.5-5.1); SODIUM 142 MMOL/L (135-145); TOTAL CARBON DIOXIDE 21.2 MMOL/L (24-32); TOTAL PROTEIN 4.9 G/DL (6.4-8.2); eGFR 86 ML/MIN
[2021-05-27 08:56] LABS: PLATELET ESTIMATE NORMAL
[2021-05-27 08:57] LABS: ANISOCYTOSIS 3+; POIKILOCYTOSIS 1+; POLYCHROMASIA FEW
[2021-05-27] MEDS: normal saline 1000ml 1,000 ML IV SCH (09:00)
--- NOTE | 2021-05-27 12:07 | NUR ---
MD visit MD to see about 1030. Orders received. Family at bedside for rounds report. Pt has had 2 stools this morning. The second was very runny. Skin at bottom red, sore, excoriated cleaned well and calazime cream applied after each. 1140 pt requested to get up to a chair. Assist x 2, pt stated he was dizzy on initial sitting up that cleared. Positioned to comfort. Encouraged to breath slow & deep.
--- NOTE | 2021-05-27 12:46 | NUR ---
F/u 3/4: Pt transferred to ICU w/ increased SOB likely CHF-related per podiatric medicine doctor at rounds. Pt PO fluctuates though overall poor past 3 days ~25% avg meals prior to NPO lunch and dinner yesterday likely r/t ICU transfer. Pt nutrition status remains poor this admit given initial 6 days NPO following by subsequent 3 days poor diet intake. Per RN this AM, pt has poor appetite though swallows well. Pt has had multiple loose BM's and per CT note 3/3 possible Ileus vs obstruction though w/ continued loose BM's this AM per RN. Rectal tube to be placed per podiatric medicine doctor at rounds. RD notified podiatric medicine doctor of current regular diet and recommends low-residue diet given recent GI surgery since likely to improve GI symptoms; podiatric medicine doctor agreeable. Given 10 days poor nutrition intake vs NPO and mild weakness pt meets minimum non-severe malnutrition criteria; MD notified. Noted prior Nicolas smoothie BID recommended for wound healing cancelled in EMR for unknown reason; new order this AM in EMR per RN. RD d/w RN IF pt poor PO persist today would benefit from EN via NG to optimize nutrition status and wound healing post-op. TF recs below in case nutrition support. Will continue to monitor for further nutrition intervention needs. Recs: 1. Low-residue diet per podiatric medicine doctor; encourage PO intake 2. Nicolas smoothies BIDBD for wound healing 3. consider anti-diarrheal if high stool output persist per MD discretion 4. weekly wts 5. IF inadequate intake persists; consider NG feeds to optimize nutrition status/wound healing post-op if within pt POC. IF TF Vital AF at 70ml/hr goal w/ one Nicolas packet BID added to water flushes Addendum: 05/27/21 at [address] Amended: Links added.
--- NOTE | 2021-05-27 13:30 | NUR ---
OOB Pt was up to chair at his request x 30 min then to commode. Back to bed in high fowlers for lunch. Ate few bites of potatoes/gravy then repositioned to comfort on Rt side. Family at bedside.
[2021-05-27 14:34] LABS: ALBUMIN 2.3 G/DL (3.4-5.0); ANION GAP 13 (8-16); BLOOD UREA NITROGEN 11 MG/DL (7-18); BUN/CREATININE RATIO 12.2 (5.4-32.0); CALCIUM 8.1 MG/DL (8.5-10.1); CHLORIDE 105 MMOL/L (99-107); GLUCOSE 86 MG/DL (70-104); MAGNESIUM 2.2 MG/DL (1.5-2.4); POTASSIUM 3.3 MMOL/L (3.5-5.1); SODIUM 139 MMOL/L (135-145); TOTAL CARBON DIOXIDE 20.8 MMOL/L (24-32); eGFR 81 ML/MIN
--- NOTE | 2021-05-27 15:38 | NUR ---
Rectal tube After repeated runny BMs and an excoriated bottom, rectal tube placed. Return note, flushed & pt tolerated procedure well. Linen changed after cleaning & cream applied to reddened areas. Pt requested to be on Lt side and positioned comfort.
[2021-05-27] MEDS: potassium Cl 20 mEq SR tablet PO PRN (16:32)
[2021-05-27] MEDS: HYDROcodone/acetaminophen 5mg/325mg tablet PO PRN (16:33)
[2021-05-27] MEDS: JUVEN Smoothie Arginine/Glut./Ca2+Bmb (Juven 19.3pkt) 240ml cup PO SCH (17:30)
--- NOTE | 2021-05-27 17:38 | NUR ---
MD Call Called Dr. Roca about 1500 for plan, orders received. Pt given [place] for moderate pain at abdomen. No drainage from abdominal wound. Well approximated with staple, no s/s infection. Family at bedside mos of day. Left at 1700. Awoke pt, states feels better, more comfortable. Remains on right side.
--- NOTE | 2021-05-27 18:17 | NUR ---
Problems reprioritized. Patient report given, questions answered & plan of care reviewed with Yodit RODRIGUEZ.
[2021-05-27 20:47] LABS: ALBUMIN 2.3 G/DL (3.4-5.0); ANION GAP 15 (8-16); BLOOD UREA NITROGEN 12 MG/DL (7-18); BUN/CREATININE RATIO 12.4 (5.4-32.0); CHLORIDE 110 MMOL/L (99-107); CREATININE 0.97 MG/DL (0.60-1.10); GLUCOSE 74 MG/DL (70-104); MAGNESIUM 2.1 MG/DL (1.5-2.4); POTASSIUM 3.5 MMOL/L (3.5-5.1); SODIUM 144 MMOL/L (135-145); TOTAL CARBON DIOXIDE 19.4 MMOL/L (24-32); eGFR 74 ML/MIN
[2021-05-27] MEDS: HYDROmorphone 2mg tablet PO PRN (21:15)
[2021-05-28] VITALS (24 sets, daily range): BP systolic 114–145; BP diastolic 39–78
[2021-05-28] MEDS: normal saline 1000ml 1,000 ML IV SCH (05:00)
[2021-05-28] MEDS: HYDROmorphone 2mg tablet PO PRN ×4 (05:10→23:16)
[2021-05-28 06:13] LABS: BASOPHILS # (AUTO) 0.1 X10'3 (0-0.2); EOSINOPHILS # (AUTO) 0.5 X10'3 (0-0.9); HEMATOCRIT 28.5 % (42.0-52.0); HEMOGLOBIN 9.5 g/dl (14.0-17.9); LYMPHOCYTES # (AUTO) 0.5 X10'3 (1.1-4.8); LYMPHOCYTES % (AUTO) 6.7 % (21-51); MEAN CORPUSCULAR HEMOGLOBIN 27.8 PG (27.0-31.0); MEAN CORPUSCULAR HGB CONC 33.3 g/dL (33.0-36.5); MEAN CORPUSCULAR VOLUME 83.4 FL (78-98); MEAN PLATELET VOLUME 7.5 FL (7.4-10.4); MONOCYTES # (AUTO) 0.9 X10'3 (0-0.9); MONOCYTES % (AUTO) 10.7 % (2-12); NEUTROPHILS # (AUTO) 6.1 X10'3 (1.8-7.7); NEUTROPHILS % (AUTO) 75.6 % (42-75); PLATELET COUNT 352 X10'3 (140-440); RED BLOOD COUNT 3.42 X10'6 (4.70-6.10); RED CELL DISTRIBUTION WIDTH 20.2 % (11.5-14.5); WHITE BLOOD COUNT 8.1 X10'3 (4.5-11.0)
[2021-05-28 06:25] LABS: ALANINE AMINOTRANSFERASE 20 U/L (12-78); ALBUMIN 2.3 G/DL (3.4-5.0); ALBUMIN/GLOBULIN RATIO 0.8 (1.1-1.5); ALKALINE PHOSPHATASE 56 IU/L (46-116); ANION GAP 16 (8-16); ASPARTATE AMINO TRANSFERASE 23 U/L (10-37); BILIRUBIN,TOTAL 0.4 MG/DL (0.1-1.0); BLOOD UREA NITROGEN 12 MG/DL (7-18); BUN/CREATININE RATIO 11.8 (5.4-32.0); CALCIUM 7.9 MG/DL (8.5-10.1); CHLORIDE 108 MMOL/L (99-107); CREATININE 1.02 MG/DL (0.60-1.10); GLUCOSE 77 MG/DL (70-104); POTASSIUM 3.5 MMOL/L (3.5-5.1); SODIUM 144 MMOL/L (135-145); TOTAL PROTEIN 5.3 G/DL (6.4-8.2); eGFR 70 ML/MIN
[2021-05-28 06:57] LABS: ANISOCYTOSIS 3+; MICROCYTOSIS 1+; PLATELET ESTIMATE NORMAL
[2021-05-28 06:58] LABS: ACANTHOCYTES FEW; ELLIPTOCYTES 1+; POIKILOCYTOSIS FEW; POLYCHROMASIA 1+
[2021-05-28] MEDS: JUVEN Smoothie Arginine/Glut./Ca2+Bmb (Juven 19.3pkt) 240ml cup PO SCH ×2 (07:30→17:30)
[2021-05-28] MEDS: K and/or MAG REPLACEMENT MC SCH ×2 (08:00→20:00)
[2021-05-28] MEDS: furosemide 20 MG/2 ML vial IV SCH ×2 (09:28→20:19)
[2021-05-28] MEDS: lisinopril 10 MG tablet PO SCH (09:28)
[2021-05-28] MEDS: pantoprazole 40mg Tablet.DR PO SCH ×2 (09:28→20:19)
[2021-05-28] MEDS: carVEDilol 3.125mg tablet PO SCH ×2 (09:29→20:18)
[2021-05-28] MEDS: atorvastatin 20mg tablet PO SCH (09:29)
[2021-05-28] MEDS: potassium Cl 20 mEq SR tablet PO PRN (09:40)
[2021-05-28] MEDS: HYDROcodone/acetaminophen 5mg/325mg tablet PO PRN (09:41)
[2021-05-29] VITALS (8 sets, daily range): BP systolic 100–143; BP diastolic 51–66
[2021-05-29] MEDS: normal saline 1000ml 1,000 ML IV SCH ×2 (01:28→21:00)
--- NOTE | 2021-05-29 02:22 | NUR ---
Report called to Prudence RN, history, diagnosis, and plan of care review and all questions answered.
--- NOTE | 2021-05-29 02:51 | NUR ---
Retrieved tele box for patient transfer to room 1534I
--- NOTE | 2021-05-29 03:56 | NUR ---
Patient in room ICU 2045. I have received report from RACQUEL RODRIGUEZ IN ICU and had the opportunity to ask questions and assumed patient care. Patient in the room resting and no apparent distress. Will continue to monitor.
[2021-05-29] MEDS: HYDROcodone/acetaminophen 5mg/325mg tablet PO PRN ×3 (04:18→19:40)
--- NOTE | 2021-05-29 06:46 | NUR ---
Problems reprioritized. Patient report given, questions answered & plan of care reviewed with CHELLY RODRIGUEZ.
[2021-05-29] MEDS: JUVEN Smoothie Arginine/Glut./Ca2+Bmb (Juven 19.3pkt) 240ml cup PO SCH ×2 (07:30→18:24)
[2021-05-29 07:47] LABS: BASOPHILS # (AUTO) 0.1 X10'3 (0-0.2); EOSINOPHILS # (AUTO) 0.5 X10'3 (0-0.9); EOSINOPHILS % (AUTO) 6.9 % (0-6); HEMATOCRIT 25.4 % (42.0-52.0); HEMOGLOBIN 8.4 g/dl (14.0-17.9); LYMPHOCYTES # (AUTO) 0.6 X10'3 (1.1-4.8); LYMPHOCYTES % (AUTO) 9.1 % (21-51); MEAN CORPUSCULAR HEMOGLOBIN 27.7 PG (27.0-31.0); MEAN CORPUSCULAR HGB CONC 33.1 g/dL (33.0-36.5); MEAN CORPUSCULAR VOLUME 83.8 FL (78-98); MEAN PLATELET VOLUME 7.6 FL (7.4-10.4); MONOCYTES # (AUTO) 0.8 X10'3 (0-0.9); MONOCYTES % (AUTO) 11.8 % (2-12); NEUTROPHILS # (AUTO) 4.9 X10'3 (1.8-7.7); NEUTROPHILS % (AUTO) 71.2 % (42-75); PLATELET COUNT 333 X10'3 (140-440); RED BLOOD COUNT 3.03 X10'6 (4.70-6.10); RED CELL DISTRIBUTION WIDTH 20.1 % (11.5-14.5); WHITE BLOOD COUNT 6.8 X10'3 (4.5-11.0)
[2021-05-29] MEDS: K and/or MAG REPLACEMENT MC SCH ×2 (08:00→19:40)
[2021-05-29] MEDS: carVEDilol 3.125mg tablet PO SCH ×2 (08:09→19:39)
[2021-05-29] MEDS: furosemide 20 MG/2 ML vial IV SCH ×2 (08:10→19:40)
[2021-05-29] MEDS: lisinopril 10 MG tablet PO SCH (08:10)
[2021-05-29] MEDS: atorvastatin 20mg tablet PO SCH (08:10)
[2021-05-29] MEDS: pantoprazole 40mg Tablet.DR PO SCH ×2 (08:20→19:39)
[2021-05-29 09:17] LABS: ALANINE AMINOTRANSFERASE 20 U/L (12-78); ALBUMIN 2.1 G/DL (3.4-5.0); ALBUMIN/GLOBULIN RATIO 0.7 (1.1-1.5); ALKALINE PHOSPHATASE 46 IU/L (46-116); ASPARTATE AMINO TRANSFERASE 29 U/L (10-37); BILIRUBIN,TOTAL 0.2 MG/DL (0.1-1.0); BLOOD UREA NITROGEN 20 MG/DL (7-18); CALCIUM 7.9 MG/DL (8.5-10.1); CREATININE 0.91 MG/DL (0.60-1.10); GLUCOSE 95 MG/DL (70-104); MAGNESIUM 1.8 MG/DL (1.5-2.4); TOTAL CARBON DIOXIDE 25.6 MMOL/L (24-32); eGFR 80 ML/MIN
[2021-05-29] MEDS: LORazepam 1 MG tablet PO PRN (09:20)
[2021-05-29] MEDS: HYDROmorphone 2mg tablet PO PRN (11:41)
[2021-05-29 14:26] LABS: POTASSIUM 3.4 MMOL/L (3.3-5.1)
--- NOTE | 2021-05-29 18:51 | NUR ---
Patient in room PCU 3018. I have received report from Kassidy RODRIGUEZ and had the opportunity to ask questions and assume patient care. Reomved pts completed dinner tray, readjusted in bed. Pt has no signs of distress, will continue to monitor.
[2021-05-30 02:00] VITALS: BP 125/72
[2021-05-30 06:00] VITALS: BP 128/58
--- NOTE | 2021-05-30 06:27 | NUR ---
Problems reprioritized. Patient report given, questions answered & plan of care reviewed with Kassidy RODRIGUEZ.
[2021-05-30] MEDS: JUVEN Smoothie Arginine/Glut./Ca2+Bmb (Juven 19.3pkt) 240ml cup PO SCH (07:30)
[2021-05-30] MEDS: K and/or MAG REPLACEMENT MC SCH (08:00)
[2021-05-30] MEDS: HYDROmorphone 2mg tablet PO PRN (08:04)
[2021-05-30] MEDS: pantoprazole 40mg Tablet.DR PO SCH (08:05)
[2021-05-30] MEDS: atorvastatin 20mg tablet PO SCH (08:05)
[2021-05-30] MEDS: carVEDilol 3.125mg tablet PO SCH (08:05)
[2021-05-30] MEDS: lisinopril 10 MG tablet PO SCH (08:06)
[2021-05-30] MEDS: furosemide 20 MG/2 ML vial IV SCH (08:09)
--- NOTE | 2021-05-30 08:49 | NUR ---
F/u 05/30: Pt continues w/ poor PO intake on Low fiber diet, avg 25% x 7 meals and 21% x 6 Nicolas smoothies, overall not meeting needs. Communicated w/ RN that pt has had poor PO intake for ~10 days and that he may benefit from TF at this time to meet nutritional needs. Per MD note, pt continues w/ melanotic stools in rectal tube, documented w/ 150ml output 3/ receiving PRN imodium. Will continue to monitor. Recs: 1. Low-residue diet per litigation specialist; encourage PO intake 2. Nicolas smoothies BIDBD for wound healing 3. consider anti-diarrheal if high stool output persist per MD discretion 4. weekly wts 5. Consider NG feeds to optimize nutrition status/wound healing post-op if within pt POC. IF TF Vital AF at 70ml/hr goal w/ one Nicolas packet BID added to water flushes Addendum: 05/30/21 at [address] Amended: Links added.
[2021-05-30 09:11] LABS: BASOPHILS # (AUTO) 0.1 X10'3 (0-0.2); BASOPHILS % (AUTO) 1.1 % (0-1); EOSINOPHILS # (AUTO) 0.4 X10'3 (0-0.9); EOSINOPHILS % (AUTO) 5.3 % (0-6); HEMATOCRIT 26.1 % (42.0-52.0); HEMOGLOBIN 8.6 g/dl (14.0-17.9); LYMPHOCYTES # (AUTO) 0.7 X10'3 (1.1-4.8); LYMPHOCYTES % (AUTO) 9.2 % (21-51); MEAN CORPUSCULAR HEMOGLOBIN 27.6 PG (27.0-31.0); MEAN CORPUSCULAR HGB CONC 32.9 g/dL (33.0-36.5); MEAN CORPUSCULAR VOLUME 83.9 FL (78-98); MEAN PLATELET VOLUME 7.5 FL (7.4-10.4); MONOCYTES # (AUTO) 0.7 X10'3 (0-0.9); MONOCYTES % (AUTO) 9.4 % (2-12); NEUTROPHILS # (AUTO) 5.5 X10'3 (1.8-7.7); PLATELET COUNT 374 X10'3 (140-440); RED BLOOD COUNT 3.11 X10'6 (4.70-6.10); RED CELL DISTRIBUTION WIDTH 20.1 % (11.5-14.5); WHITE BLOOD COUNT 7.3 X10'3 (4.5-11.0)
[2021-05-30 11:00] VITALS: BP 120/65
[2021-05-30] MEDS: HYDROcodone/acetaminophen 5mg/325mg tablet PO PRN (13:47)
--- NOTE | 2021-05-30 14:27 | NUR ---
Transferred to Acute rehab, in stable condition, accompanied by 1 attendant. Report given to nurse Rabago.
== END 2021-05-30 14:10 | DRG 329 ==
LOC: ER 12:38 → ED HOLD 16:55 → PCU 3S 19:15 → PACU 05-18 09:16 → PCU 3S 05-18 11:00 → ICU 2S 05-26 17:14 → PCU 3S 05-29 03:30
PROVIDERS: ADMIT Family Medicine; ATTEND Family Medicine
PROC: 30233N1 Transfusion of Nonautologous Red Blood Cells into Peripheral Vein, Percutaneous Approach (ICD-10-PCS; principal; 2021-05-17)
PROC: 0DTF0ZZ Resection of Right Large Intestine, Open Approach (ICD-10-PCS; 2021-05-17)
PROC: 07TB0ZZ Resection of Mesenteric Lymphatic, Open Approach (ICD-10-PCS; 2021-05-17)
PROC: 3E0T3BZ Introduction of Anesthetic Agent into Peripheral Nerves and Plexi, Percutaneous Approach (ICD-10-PCS; 2021-05-18)
DX: C18.2 Malignant neoplasm of ascending colon (principal); I50.31 Acute diastolic (congestive) heart failure; D62 Acute posthemorrhagic anemia; N39.0 Urinary tract infection, site not specified; N17.9 Acute kidney failure, unspecified; T81.31XA Disruption of external operation (surgical) wound, not elsewhere classified, initial encounter; E87.2 Acidosis; K91.840 Postprocedural hemorrhage of a digestive system organ or structure following a digestive system procedure; C77.2 Secondary and unspecified malignant neoplasm of intra-abdominal lymph nodes; I25.10 Atherosclerotic heart disease of native coronary artery without angina pectoris; I11.0 Hypertensive heart disease with heart failure; E86.0 Dehydration; E78.5 Hyperlipidemia, unspecified; D72.819 Decreased white blood cell count, unspecified; N40.0 Benign prostatic hyperplasia without lower urinary tract symptoms; L40.9 Psoriasis, unspecified; E87.6 Hypokalemia; G89.29 Other chronic pain; Y83.6 Removal of other organ (partial) (total) as the cause of abnormal reaction of the patient, or of later complication, without mention of misadventure at the time of the procedure; Z20.822 Contact with and (suspected) exposure to COVID-19; Y92.238 Other place in hospital as the place of occurrence of the external cause; M54.9 Dorsalgia, unspecified; I25.2 Old myocardial infarction; Z95.5 Presence of coronary angioplasty implant and graft; Z90.49 Acquired absence of other specified parts of digestive tract; Z80.42 Family history of malignant neoplasm of prostate; Z79.899 Other long term (current) drug therapy; Z87.891 Personal history of nicotine dependence; Z79.82 Long term (current) use of aspirin; Z85.46 Personal history of malignant neoplasm of prostate
CPT/HCPCS: 36415; 36430; 71045; 71275; 74150; 80048; 80053; 80061; 81001; 82272; 82948; 83036; 83735; 84100; 85007; 85008; 85025; 85027; 85610; 85730; 86885; 86900; 86901; 86920; 87081; 87088; 87635; 88309; 93005; 93306; 93970; 97110; 97116; 97161; 97530; 97535; 99285; A4618; A7000; C1758; C9113; G0378; J0690; J0696; J1100; J1170; J1940; J2175; J2250; J2270; J2274; J2405; J2704; J2710; J3010; J3475; J3490; J7030; J7070; J7120; P9016; P9045; Q9967

== ENCOUNTER 2025-03-20 09:41 | Inpatient (IN) | payer MEDICARE, BC ==
[~2025-03-20] VITALS: Ht 167.6 cm; Wt 71.0 kg
[~2025-03-20 09:41] MED LIST changes: +LISI2.5T14 PO; -LISI20TA28 PO; +NITR0.4T51 SL
--- NOTE | 2025-03-20 09:57 | ELECTROCARDIOGRAPH REPORT ---
[facility] Test Date: 2025-03-20 Test Time: 09:53:36 Pat Name: EDGAR WALLIS Department: EMERGENCY ROOM Patient ID: [id number] Room: ED 1 Gender: M Bit Shaver: DWIGHT : 1940 Requested By: BREN HATCH Order Number: [id number] Reading MD: Dr. Ford Chopra Measurements Intervals [place] Rate: 79 P: 2 WV: 199 QRS: -47 QRSD: 107 T: -2 QT: 422 QTc: 484 Interpretive Statements Sinus rhythm Consider left atrial enlargement Left anterior fascicular block Borderline T abnormalities, inferior leads Baseline wander in lead(s) II,aVR,V1,V2 Electronically Signed On 03-20-2025 18:12:[address] Ford Chopra Please click the below link to view image of tracing.
--- NOTE | 2025-03-20 11:23 | Physician Documentation ---
History of Present Illness ~ Chief Complaint: Shortness of Breath Stated Complaint: CARDIAC FOLLOW UP Time Seen by MD: 10:51 Source: patient, family Mode of Arrival: EMS Exam Limitations: no limitations HPI 84-year-old male was brought in by EMS as a transfer from [facility] daughter is at bedside. Patient's initial complaint was some sore shortness of breath diarrhea or frequent urination with chronic UTIs currently being treated by primary care where he will be treated for UTI and a couple of weeks later have another 1. Patient also has history of prostate ca ncer. Patient has history of coronary artery disease, atrial fibrillation not on anticoagulation with his initial complaint being shortness of breath earlier at [facility]. Patient's daughter has noticed generalized weakness with falls. Patient was found to have acute kidney injury at [facility]. Patient's cystitis was found to be Pseudomonas aeruginosa with his antibiotic switched from Bactrim to Keflex. He was given a dose of Levaquin. Patient also has history of stent placement in 2008 and in 2020. Patient had a chest x-ray and a chest CT which was negative for pulmonary embolism. Patient was given aspirin and Lovenox at [facility]. Patient was transferred here for cystitis, acute kidney injury, elevated troponin NSTEMI, with significant cardiac history. Patient is currently experiencing diarrhea but denies shortness of breath currently. Medication Reconciliation Allergies: Coded Allergies: atorvastatin (Verified Allergy, Unknown, 03/20/25) Scheduled Ferrous Sulfate (Ferrous Sulfate), 1 TAB PO DAILY, (Reported) Furosemide (Furosemide), 1 TAB PO DAILY, (Reported) Rosuvastatin Calcium (Rosuvastatin Calcium), 1 TAB PO DAILY, (Reported) Scheduled PRN Hydromorphone HCl (Hydromorphone HCl), 1 TAB PO Q4H PRN for pain, (Reported) Discontinued Medications Aspirin (Aspirin EC), 1 TAB PO DAILY, (Reported) Discontinued Reason: patient no longer taking Carvedilol (Carvedilol), 1 TAB PO BID, (Reported) Discontinued Reason: patient no longer taking Clopidogrel Bisulfate (Plavix), 1 TAB PO DAILY, (Reported) Discontinued Reason: patient no longer taking Hydromorphone HCl (Dilaudid), 1 TAB PO QID PRN for pain, (Reported) Discontinued Reason: patient no longer taking Lisinopril (Lisinopril), 1 TAB PO DAILY, (Reported) Discontinued Reason: patient no longer taking Nitroglycerin SL* (Nitrostat SL*), 1 TAB SL Q5MIN PRN for Chest pain Q5min PRNx3-call MD, (Reported) Discontinued Reason: patient no longer taking Ondansetron 8mg ODT (Ondansetron Odt), 1 TAB PO BID, (Reported) Discontinued Reason: patient no longer taking Pnv95/Ferrous Fumarate/FA ( Tablet), 1 TAB PO DAILY, (Reported) Discontinued Reason: patient no longer taking Psyllium Husk (Daily Fiber), 1 PACKET PO DAILY, (Reported) Discontinued Reason: patient no longer taking Spironolactone (Spironolactone), 1 TAB PO DAILY, (Reported) Discontinued Reason: patient no longer taking Tolterodine Tartrate (Tolterodine Tartrate), 1 TAB PO BID, (Reported) Discontinued Reason: patient no longer taking Past Medical History Past Medical History: Atrial Fibrillation, Coronary Artery Disease, Chronic Kidney Disease, UTI, *CANCER*, Colon Cancer Past Surgical History: angioplasty Alcohol Use: None Drug Use: none Lives In: Home Occupation: retired Review of Systems All Other Systems at this time: Reviewed and Negative Respiratory: Reports: see HPI Genitourinary: Reports: see HPI Physical Exam Vital Signs: RN Vital Signs have been reviewed: Yes, Temperature: 98.7, Source: Oral, Heart Rate: 74, Respiratory Rate: 15, BP: 139/83, Pulse Oximetry: 100, Weight: 71.000 Oxygen Flow Rate: 0 Physical Exam General: Alert, no apparent distress. HEENT: PERRL, EOMI, no injection, moist mucous membranes. Neck: Full range of motion. Respiratory: Lungs clear, no respiratory distress. Breath sounds equal bilaterally no rales wheezing or rhonchi Chest: No accessory muscle use. Cardiovascular: Regular rate and rhythm, no murmurs. GI: Abdominal binder for large hernia Extremities: Normal range of motion, no deformity. Neurologic: Oriented x4. Psychiatric: Normal mood and affect. Skin: Normal color, warm and dry. No edema, no ecchymosis. Progress Results/Orders Results/Orders Orders - KINZA HUNT NP Saline Lock (03/20/25 11:15) Monitor (03/20/25 11:15) Oxygen (03/20/25 11:15) Page Hospitalist (03/20/25 11:27) Fill Out Med Reconciliation (03/20/25 11:27) Completed Orders - KINZA HUNT NP Cbc/Diff (03/20/25 11:15) MG (03/20/25 11:15) BMP (03/20/25 11:15) Hs Troponin I W Calculations (03/20/25 11:15) Hs Troponin I W Calculations (03/20/25 13:15) Hs Troponin I W Calculations (03/20/25 14:15) PBNP (03/20/25 11:31) PHOS (03/20/25 11:31) Vital Signs 03/20/25 03/20/25 03/20/25 03/20/25 09:44 10:00 10:00 11:00 Temp 98.7 Pulse 83 74 75 Resp 16 15 15 B/P (MAP) 155/78 139/83 (101) 138/70 (92) Pulse Ox 99 100 100 O2 Flow Rate 0 0 03/20/25 12:00 Pulse 78 Resp 20 B/P (MAP) 131/61 (84) Pulse Ox 99 O2 Flow Rate 0 Laboratory Tests Test 03/20/25 11:26 03/20/25 11:31 Urine Specimen Description Non-specified Urine Color Yellow Urine Clarity Clear Urine pH 7.0 Urine Specific [place] 1.010 Urine Protein 100 H Urine Glucose (UA) Negative Urine Ketones Negative Urine Occult Blood Moderate H Urine Nitrite Negative Urine Bilirubin Negative Urine Urobilinogen 0.2 Urine Leukocyte Esterase Negative Urine RBC 20-50 Urine WBC 5-10 H Urine Squamous Epithelial Cells Few Urine Transitional Epithelial Cells Few Urine Renal Cells Few Urine Bacteria Few Urine Mucus None seen Urine Culture Indicated Indicated Volume Urine Centrifuged 10 ml Urine Comment White Blood Count 5.8 Red Blood Count 3.49 L Hemoglobin 11.2 L Hematocrit 33.2 L Mean Corpuscular Volume 95.2 Mean Corpuscular Hemoglobin 32.3 H Mean Corpuscular Hemoglobin Concent 33.9 Red Cell Distribution Width 16.7 H Platelet Count 347 Mean Platelet Volume 7.2 L Neutrophils (%) (Auto) 76.4 H Lymphocytes (%) (Auto) 8.2 L Monocytes (%) (Auto) 13.1 H Eosinophils (%) (Auto) 1.8 Basophils (%) (Auto) 0.5 Neutrophils # (Auto) 4.4 Lymphocytes # (Auto) 0.5 L Monocytes # (Auto) 0.8 Eosinophils # (Auto) 0.1 Basophils # (Auto) 0.0 CBC Comment Sodium Level 143 Potassium Level 3.8 Chloride Level 112 H Carbon Dioxide Level 20.0 L Anion Gap 11 Blood Urea Nitrogen 52 H Creatinine 1.48 H Estimated GFR/1.73 m2 45 BUN/Creatinine Ratio 35.1 H Glucose Level 99 Lactic Acid Level 1.1 Calcium Level 9.1 Phosphorus Level 2.6 Magnesium Level 2.3 Troponin I High Sensitivity 28 Pro-B-Type Natriuretic Peptide 4478 H Albumin 3.0 L Chemistry Comments Heart Score: Heart Score Response (Comments) Value History Slightly Suspicious 0 EKG Normal 0 Age >65 2 Risk Factors >3 or Hx ASHD 2 Total 4 Medical Decision Making Additional information obtaine: old records Findings Records from [facility] at bedside and reviewed. CTA negative for pulmonary embolism troponins were decreasing to 0.18 was the last prior to aleisha salvador. UTI cystitis with acute kidney injury patient will be admitted for further workup. Patient does have history of stent placement Heart Score: 4 Differential Dx:Considerations: Include: myocardial infarction, other Departure Time of Disposition: 11:25 Disposition: 02 SHORT TERM HOSPITAL Impression: Primary Impression: Acute kidney injury Additional Impressions: Cystitis due to Pseudomonas NSTEMI (non-ST elevated myocardial infarction) Diarrhea Weakness Condition: Fair Referrals: NO PRIMARY CARE PROVIDER (PCP) Education Educated: Patient, Family Educated regarding: diagnosis, treatment, need for follow up Signature Scribe Signature: No scribe Attestation: The note accurately reflects work and decisions made by me.Kinza NOBLES 03/20/25 11:26 KINZA HUNT NP Mar 20, 2025 11:23
[2025-03-20 11:38] LABS: MEAN PLATELET VOLUME 7.2 FL (7.4-10.4); RED CELL DISTRIBUTION WIDTH 16.7 % (11.5-14.5)
[2025-03-20 11:49] LABS: CREATININE 1.48 MG/DL (0.60-1.10); TOTAL CARBON DIOXIDE 20.0 MMOL/L (24-32); eCRCL 32 ML/MIN; eGFR 45 ML/MIN
--- NOTE | 2025-03-20 12:08 | HISTORY AND PHYSICAL ---
History & Physical Providers to CC Complaint, diarrhea stool and urinary incontinence ~ History of Present Illness Reason for Admit\Complaint: As above History of Present Illness Patient is a 84-year-old male, with history of multiple medical problems including chronic kidney disease, atrial fibrillation on Plavix and aspirin, coronary artery disease status post three stents, history of colon and prostate cancer, hypertension, history of urinary and stool incontinence, psoriasis, hypoalbuminemia, UTI Pseudomonas sensitive, CHF ejection fraction 67% 2021, dyslipidemia, anemia hemoglobin 11.2, umbilical hernia, presented today to emergency department chief complaint diarrhea associated with stool and urinary incontinence; in addition patient was brought in by EMS as a transfer from [facility] daughter is at bedside. Patient's initial complaint was some sore shortness of breath diarrhea or frequent urination with chronic UTIs currently being treated by primary care where he will be treated for UTI and a couple of weeks later have another 1. Patient also has history of prostate cancer. Patient has history of coronary artery disease, atrial fibrillation not on anticoagulation with his initial complaint being shortness of breath earlier at [facility] [place]. Patient's daughter has noticed generalized weakness with falls. Patient was found to have acute kidney injury at [facility] [place]. Patient's cystitis was found to be Pseudomonas aeruginosa with his antibiotic switched from Bactrim to Keflex. He was given a dose of Levaquin. Patient also has history of stent placement in 2008 and in 2020. Patient had a chest x-ray and a chest CT which was negative for pulmonary embolism. Patient was given aspirin and Lovenox at [facility] [place]. Patient was transferred here for cystitis, acute kidney injury, elevated troponin NSTEMI, with significant cardiac history. Patient is currently experiencing diarrhea but denies shortness of breath currently. In emergency department patient was evaluated by physician was diagnosed with gastroenteritis, UTI, decision was made to admit patient for further evaluation and treatment, no additional complaint or concern. Allergies: Coded Allergies: atorvastatin (Verified Allergy, Unknown, 03/20/25) Active prescriptions I reviewed reconciled Home Medications Home Medications Active Reported Nitrostat SL* (Nitroglycerin) 0.4 Mg Tablet 1 Tab SL Q5MIN PRN Lisinopril 2.5 Mg Tablet 1 Tab PO DAILY 30 Days DAILY AT NOON Dilaudid (Hydromorphone HCl) 4 Mg Tablet 1 Tab PO QID PRN MDD 4 Tablet(s) Crestor* (Rosuvastatin Calcium) 10 Mg Tablet 1 Tab PO DAILY Tablet (Pnv95/Ferrous Fumarate/FA) 1 Each Tablet 1 Tab PO DAILY Daily Fiber (Psyllium Husk) 0.52 Gm Capsule 1 Packet PO DAILY Carvedilol 3.125 Mg Tablet 1 Tab PO BID Aspirin EC (Aspirin) 81 Mg Tablet.dr 1 Tab PO DAILY Plavix (Clopidogrel Bisulfate) 75 Mg Tablet 1 Tab PO DAILY Past Medical History Past Medical History As in HPI Past Surgical History Surgical History Comment As in HPI Past Social History Social History Comment Deny illicit drug abuse tobacco alcohol use live with the family good social support Health Maintenance Health Maintenance Noncontributory ROS ROS Constitutional : no fever , no chills, or weakness. No diaphoresis. Allergic/Immunologic, no lymphadenopathy, no hives, no skin eruptions. Eyes, no recent visual changes, no eye pain, no photophobia. Ears, nose, mouth, throat, no sore throat, no nosebleed, no ear pain. Cardiovascular, no palpitations, skipped beats, chest pain, no peripheral edema, Respiratory, no dyspnea, orthopnea, cough, hemoptysis, chest wall pain. Gastrointestinal, positive for urinary and fecal incontinence, no abdominal pain, nausea, vomiting, constipation positive for nonbloody diarrhea. : no dysuria, hematuria, pelvic pain, urethral d/c. Endocrine, no polyuria, polydipsia, recent unintentional weight gain or loss. Hematologic/Lymphatic, no petechiae, no enlarged lymph nodes, no bone pain. Integumentary, no rash, no skin lesions, Musculoskeletal, no muscle aches, or pain, no muscle cramps, no recent change in gait Neurological, no dizziness, no headache, no syncope, no paresthesia. Psychiatric, no delusions, visual hallucinations, or hearing hallucinations. ROS - in rest is as in HPI. Exam Vitals: Vital Signs Date Time Temp Pulse Resp B/P (MAP) Pulse Ox O2 Delivery O2 Flow Rate FiO2 03/20/25 11:00 75 15 138/70 (92) 100 0 03/20/25 09:44 98.7 Vital signs, stable ,afebrile. Pulse Oximetry reflects adequate oxygenation. BMI is 25, weight 71 kg General: well developed, well nourished. Awake , alert, and oriented x4, resting comfortably in the bed, in no acute distress . Skin: Warm, dry, no pallor, no rash or petechiae. HEENT: Atraumatic, normocephalic, EOMI, anicteric sclera B; pink conjunctiva; PERRLA, normal oropharynx, moist oral and nasal mucosa. Tympanic membrane , nose , throat clear. Neck: Trachea midline. Supple, full range of motion, no JVD, bruit , hepatojugular reflex , lymphadenopathy or masses, or other lesions Cardiac: Regular rhythm, regular rate no murmurs, rubs, or gallops. Normal S1 and S2, no S3 noticed. PMI is normal. Respiratory: Equal breath sounds bilaterally, no tachypnea; lungs clear to auscultation bilaterally, no wheezing ,rub or rales, or crackles. Chest wall is symmetric and without deformity. No signs of trauma. Chest wall is nontender. No signs of respiratory distress. Resonance is normal upon percussion bilaterally. Gastrointestinal: Abdomen symmetric, non-distended, soft, non-tender, normal bowel sounds x4 quadrant, normoactive, no hepatosplenomegaly , no masses , no bruit, no flank pain bilaterally. No voluntary guarding, rebound, or rigidity. No tenderness to percussion. No pulsatile masses. Equal femoral pulses. No Stephenson's sign or McBurney point tenderness. Back; no CVA tenderness bilaterally, no deformities. Neck and back are without deformity as well. No tenderness noted on palpation of the spinous processes. Spinous processes are midline. Cervical, thoracic, and lumbar paraspinal muscles are not tender and are without spasm. : normal external genitalia, without lesions, swelling, masses or tenderness. Musculoskeletal: Extremities, normal range of motion, non-tender, muscle strength 5/5 x 4. Negative Homans signs bilaterally on lower extremity. Distal pulses full symmetrical, no clubbing, cyanosis , edema. Neurological: Speech is clear, alert, and oriented x 4. No motor or sensory deficit, deep tendon reflexes normal, cerebellar intact. Cranial nerves II-XII intact. Psych: Alert and or appropriate, normal affect. Vascular: Good distal pulses, which are equal x4; capillary refill less than 2 seconds. Lymphatic, no lymphadenopathy. Diagnostic Data Last Recorded Lab Results: 03/20/25 1131 03/20/25 1131 Advance Care Planning Advanced Care plannin - 30 Minutes Additional Plan Assessment Acute gastroenteritis colitis UTI complicated Sepsis Acute renal failure GFR 45 CHF diastolic, in exacerbation ejection fraction 67% 2021 Anemia hemoglobin 11.2 Metabolic acidosis Generalized weakness associated with deconditioning Dilated small bowel loop, rule out SBO Atrial fibrillation on Plavix and aspirin Status post coronary artery disease three stents placement History of colon and prostate cancer Additional comorbidities, hypoalbuminemia dyslipidemia hypertension umbilical hernia chronic kidney disease Plan IV fluids keep patient well hydrated euvolemic IV antibiotics Lasix IV prn PT evaluation and treatment May need surgeon evaluation Echocardiography pending Additional lab work pending Serial troponin, EKG I reconciled home medications DVT gastropathy prophylaxis addressed Sepsis Screening Reassessment Date: Mar 20, 2025 Date of Service: Mar 20, 2025 Billing Provider: NICKI CARRION MD Common Visit Codes: 23966-QGHRRRM INP/OBS CARE (HIGH) Secondary Visit Codes: 24760-SDOVZZLK CARE PLAN 30 MINUTES NICKI CARRION MD Mar 20, 2025 12:08
[2025-03-20] MEDS ORDERED: potassium Cl 20 mEq SR tablet PO PRN ×2 (12:10)
[2025-03-20] MEDS ORDERED: bisacodyl 10mg suppository rectal RC PRN (12:10)
[2025-03-20] MEDS ORDERED: magnesium sulf-water 4G/100mL 100 ML IV PRN (12:10)
[2025-03-20] MEDS ORDERED: HYDROcodone/acetaminophen 5mg/325mg tablet PO PRN (12:10)
[2025-03-20] MEDS ORDERED: potassium Cl 40MEQ/1/2NS 520ml 520 ML IV PRN (12:10)
[2025-03-20] MEDS ORDERED: ondansetron/PF 4mg/2ml inj IV PRN (12:10)
[2025-03-20] MEDS ORDERED: mag hydrox/Alum hydrox/simeth 30ml oral suspension PO PRN (12:10)
[2025-03-20] MEDS ORDERED: magnesium hydroxide 30ml (MOM) UD suspension PO PRN (12:10)
[2025-03-20] MEDS ORDERED: magnesium sulf-water 2g/50mL 50 ML IV PRN (12:10)
[2025-03-20] MEDS ORDERED: magnesium Cl slow-release 64mg tablet PO PRN (12:10)
[2025-03-20] MEDS ORDERED: ondansetron 4mg rapidly disintigrating tab PO PRN (12:10)
[2025-03-20] MEDS: LidoCAINE 2% Topical Jelly 11mL syringe (UROJET) TOP ONE (12:20)
[2025-03-20 12:25] LABS: LEUKOCYTE ESTERASE ,URINE NEGATIVE (Neg); NITRITES, URINE NEGATIVE (Neg); OCCULT BLOOD,URINE MODERATE (Neg)
[2025-03-20 12:28] LABS: UA COLLECTION TYPE NON-SPECIFIED
[2025-03-20 12:32] LABS: MUCUS STRANDS NONE SEEN /LPF (Neg); RENAL CELLS, URINE FEW /HPF; SQUAMOUS EPITHELIAL CELL,UR FEW /LPF (FEW)
[2025-03-20 12:43] LABS: PHOSPHORUS 2.6 MG/DL (2.3-4.5); PRO BRAIN NATRIURETIC PEPTIDE 4478 PG/ML (0-450)
[2025-03-20] MEDS: normal saline 1000ml 1,000 ML IV SCH (12:49)
[2025-03-20 12:56] LABS: APTT 30 SECONDS (22-32); INR 1.1 INR
[2025-03-20 13:36] LABS: C DIFF SPECIMEN=DIARRHEA? ACCEPTABLE; C DIFFICILE TOXINS A&B NEGATIVE (Neg)
[2025-03-20 13:37] LABS: C DIFF ANTIGEN SEE COMMENTS (NEGATIVE)
--- NOTE | 2025-03-20 13:54 | RADIOLOGY REPORT ---
Exam: CT CT CHEST ABDOMEN PELVIS History: sepsis Comparison Study: CT ABDOMEN on DOS: 05/26/21 Technique: Multidetector spiral CT of the chest, abdomen and pelvis was performed from lower neck to pubic symphysis Axial, coronal and sagittal multiplanar reformats were performed by the technologist on a separate workstation. Postcontrast imaging performed. Radiation Dose : 1. Chest/Abdomen/Pelvis: CTDIvol 15.9 mGy, DLP 1532.8 mGy*cm. Findings: Lower neck: Normal thyroid. Lungs: No focal consolidation, pleural effusion or pneumothorax. Heart/Vascular Structures: Cardiomegaly. Coronary artery calcifications. Vascular calcifications of the aorta. Vascular calcifications of the aorta and its main branches. Lymph Nodes: No adenopathy Pleura: No pleural effusion or significant pneumothorax. Liver: The liver is normal in size. No focal lesions. Normal hepatic vascular enhancement. Gallbladder and Biliary Tree: Post cholecystectomy. Spleen: Unremarkable Pancreas: The pancreas is normal in appearance without focal lesions or abnormal enhancement. Adrenal Glands: Unremarkable Kidneys: Multiple bilateral renal cysts. Bilateral kidneys are atrophic. Bladder: Excreted contrast is present within the urinary bladder. Bowel: Moderate fat and bowel containing umbilical hernia. Nonspecific bowel-gas pattern with diffuse fluid-filled distention of small-bowel loops. High-grade narrowing of bowel loop associated with hernia defect. Colonic diverticulosis. The stomach is grossly normal in appearance. Ascites: Absent Lymphadenopathy: No mesenteric, retroperitoneal or periportal lymphadenopathy. Abdominal Wall and Mesentery: Moderate fat and bowel containing umbilical hernia. Vasculature: Vascular calcifications of the aorta and its main branches. Pelvic Organs: Unremarkable Musculoskeletal: Diffuse osteopenia. Advanced multilevel degenerative changes of the spine. IMPRESSION: No acute process in the chest. Moderate fat and bowel containing umbilical hernia. High-grade narrowing of bowel loop associated with hernia defect, superiorly. Nonspecific bowel-gas pattern with diffuse fluid-filled distention of small- bowel loops. Findings may represent early/developing or partial bowel obstruction associated with hernia defect. Clinical correlation advised.
[2025-03-20 13:57] LABS: OCCULT BLOOD STOOL NEGATIVE (Neg)
[2025-03-20] MEDS: loperamide 2mg capsule PO PRN (16:02)
[2025-03-20] MEDS: K and/or MAG REPLACEMENT MC SCH (20:00)
[2025-03-20] MEDS: docusate sod 100mg capsule PO SCH (20:00)
[2025-03-21 03:10] LABS: MEAN PLATELET VOLUME 7.6 FL (7.4-10.4); RED CELL DISTRIBUTION WIDTH 16.9 % (11.5-14.5)
[2025-03-21 03:25] LABS: CREATININE 1.62 MG/DL (0.60-1.10); TOTAL CARBON DIOXIDE 20.6 MMOL/L (24-32); eCRCL 30 ML/MIN; eGFR 41 ML/MIN
[2025-03-21] MEDS ORDERED: FURO40TA4 PO (04:34)
[2025-03-21] MEDS ORDERED: SPIR25TA5 PO (04:34)
[2025-03-21] MEDS ORDERED: HYDR4TAB55 PO (04:34)
[2025-03-21] MEDS ORDERED: TOLT2TAB20 PO (04:34)
[2025-03-21] MEDS ORDERED: ONDA-245 PO (04:34)
[2025-03-21] MEDS: HYDROcodone/acetaminophen 10/325mg tab PO PRN (04:50)
[2025-03-21 06:40] VITALS: BP 121/60; PULSE 64; RESP 17; TEMP 98.8; O2SAT 97
[2025-03-21] MEDS: pantoprazole 40mg Tablet.DR PO SCH (07:42)
[2025-03-21] MEDS: levoFLOXACIN-Levaquin 500mg/D5 100 ML IV SCH (07:42)
[2025-03-21 10:00] VITALS: BP 120/56; PULSE 66; RESP 19; TEMP 98.7; O2SAT 99
[2025-03-21] MEDS: vancomycin 125 MG/5 ML UD oral SOLN.RECON 5mL oral syringe (FIRVANQ) PO SCH (14:00)
[2025-03-21] MEDS ORDERED: FERR-39 PO (15:16)
[2025-03-21] MEDS ORDERED: ROSU20TA98 PO (15:17)
--- NOTE | 2025-03-21 16:41 | PROGRESS NOTE- Residence ---
Progress Note - Resident Providers to CC Resident Creating Document: MARYA SANCHEZ, TERI ~ Central Line/PICC still needed: N\A [place]-Non Protocol [place] Indications Met/Not Met: F/C Indications Not Met Antibiotic Timeout Antibiotic Ordered?: Yes Subjective Patient was examined bedside with the [id number] present. He is hard of hearing. He is having around 10 bowel movements a day, bowel movements consists of greenish watery stools. No complaints of abdominal pain, fever/chills, nausea/vomiting. Resting comfortably in bed. No Acute symptoms overnight. Objective Vital Signs Date Time Temp Pulse Resp B/P (MAP) Pulse Ox O2 Delivery O2 Flow Rate FiO2 03/21/25 14:49 16 03/21/25 13:03 59 03/21/25 10:00 98.7 120/56 (77) 99 Room Air 03/21/25 07:30 0.0 Result Diagram: 03/21/25 0234 03/21/25 0234 General: Hard of hearing, Well alert, well oriented, not confused, not agitated, not in acute distress, well cooperated during the physical. HEENT: Conjunctive are pink, sclerae clear, no icterus, pupil is equal in both sides, reactive to light, no ear discharge, no pharyngeal erythema or an edema. Neck: Supple, no JVD, no lymphadenopathy and thyromegaly. Chest: Equal air entry on both lungs, no added sounds, no wheeze. Cardiovascular: S1-S2 regular sinus rhythm and, regular rate, no gallops, no rubs, no murmurs Abdomen: No visible peristalsis, Bowel sounds present on auscultation, soft, nontender, no guarding, no rigidity Extremities: No obvious deformities, 1+ pitting edema bilaterally, capillary refill intact, peripheral pulsations are intact on both sides Central Nervous System: No focal neurological deficits, no motor or sensory weakness in all 4 extremities, could move all 4 extremities, 2+ deep tendon reflexes, negative Babinski. Musculoskeletal: No joint swelling, deformities, inflammations, and no scoliosis and back tenderness Skin: Warm and dry. Coagulation Studies Laboratory Tests Test 03/20/25 12:35 Prothrombin Time 10.9 SECONDS (9.0-12.0) INR International Normalized Ratio 1.1 INR Activated Partial Thromboplast Time 30 SECONDS (22-32) Coagulation Comments Counseling Services Smoking & Tobacco Cessation: N/A Advance Care Planning Advanced Care planning: N/A Assessment Assessment This is an 84-year-old male who was a transfer from [facility]. He has been diagnosed with C diff colitis after extended antibiotic use for his complicated UTI. He is currently on oral vancomycin. Blood culture and urine cultures are negative. Elevated proBNP, awaiting echo results. Plan Plan C diff colitis, After extensive antibiotic use for complicated UTI Complicated UTI Metabolic acidosis Patient currently does not meet SIRS criteria Vitals: Stable CBC shows no leukocytosis, CMP essentially normal. CT abdomen pelvis shows diffuse fluid-filled distention of small-bowel loops. Blood culture and urine culture no growth after 1 day Started the patient on oral vancomycin 125 mg p.o. q.6 with probiotics Inflammatory markers within the normal range ID consulted, awaiting recommendation Held fluids since the patient is complaining of orthopnea and PND and elevated BNP The patient does not look fluid overload, we will re-evaluate the need for fluids tomorrow. Acute exacerbation of CHF with preserved ejection fraction Hyperlipidemia Coronary artery disease status post 3 PTCA Orthopnea PND with elevated proBNP Troponin not elevated, EKG shows no ischemic changes Cardiogram shows normal left ventricle function with ejection fraction of 60% Patient does not look fluid overloaded, however Lasix has been withheld in view of his ongoing C diff colitis. We will start the patient on GDM T with Jardiance 10. Continue home medication atorvastatin 20 Awaiting lipid levels and hemoglobin A1c. History of multiple malignancies, currently in remission Normocytic normochromic anemia Colon cancer status post resection and chemo Prostate cancer status post resection and chemo and radiation Bone cancer status post variation Complains of chronic bone pain, pain management with Dilaudid and Saunemin He gives history of chronic anemia to the above treatment. He gets frequent CBCs and Neupogen injections outpatient. Follow up with Oncology outpatient. ROHIT, most likely prerenal Age-related EGFR decline Creatinine 1.62, BUN 44, EGFR 41 Ordered urine lytes to determine the etiology Generalized weakness associated with deconditioning Hypoalbuminemia Ensure protein shake, nutritious diet. Code status: Full code DVT prophylaxis: Heparin subcutaneous Analgesia/sedation: Morphine/Saunemin Line/tube: PIV GI prophylaxis: Protonix Nutrition: Heart healthy PT: Ordered. Prognosis: Guarded Disposition: Oral vancomycin, ID consulted Marya Sanchez MD PGY1, Internal Medicine [facility] Date of Service: Mar 21, 2025 Billing Provider: AYLA LÓPEZ MD, SHIVANI, RES Mar 21, 2025 16:41
[2025-03-21 18:00] VITALS: BP 132/56; PULSE 63; RESP 20; TEMP 99.1; O2SAT 99
[2025-03-21] MEDS ORDERED: HYDROcodone/acetaminophen 5mg/325mg tablet PO PRN (18:45)
[2025-03-21] MEDS: lactobacillus rhamnosus 10,000 MMU CELLS/CAPSULE PO SCH (19:28)
[2025-03-21 20:00] VITALS: RESP 18; O2SAT 98
[2025-03-21 22:00] VITALS: BP 115/51; PULSE 56; RESP 18; TEMP 98.2; O2SAT 98
[2025-03-22 06:22] VITALS: BP 128/60; PULSE 52; RESP 18; TEMP 98.5; O2SAT 99
[2025-03-22 07:55] VITALS: RESP 18; O2SAT 99
[2025-03-22] MEDS: ROSUVASTATIN 20MG PO SCH (08:00)
[2025-03-22] MEDS: EMPAGLIFLOZIN 10 MG TABLET PO SCH (08:00)
[2025-03-22] MEDS: Ensure Enlive - 237ML PO SCH (08:00)
[2025-03-22] MEDS ORDERED: levoFLOXACIN-Levaquin 250mg/D5 50 ML IV SCH (08:00)
--- NOTE | 2025-03-22 08:10 | CARDIOLOGY REPORT ---
APPROVED REPORT EXAM: Comprehensive 2D, Doppler, and color-flow Echocardiogram. Patient Location: 341A Blood Pressure: 141/68 mmHg Heart Rate: 57 bpm Indications Myocardial Infarction Congestive Heart Failure ProBNP: 4478 Coronary Artery Disease Angioplasty x 2 HX of Stents x 2 Atrial Fibrillation LABORATORY DIRECTOR: Indu You MD Previous ECHO: 05/18/21, [facility], EF: 65-70 2D Dimensions LA Diam 4.1 cm IVSd 0.7 (0.7-1.1cm) LVDd 4.8 cm PWd 1.0 (0.7-1.1cm) IVSs 1.3 (0.8-1.2cm) LVDs 3.2 (2.5-4.0cm) PWs 1.3 (0.8-1.2cm) LVOT Diameter 2.36 (1.8-2.4cm) LVEF(%) 63.3 (>50%) Ao Asc Diam. 3.66 cm IVC 15.04 mm FS (%) 34.4 % SV 68.1 ml CO 3.7 L/min M-Mode Dimensions Left Atrium(MM) 5.64 (2.5-4.0cm) Aortic Root 4.03 (2.2-3.7cm) Aortic Cusp Exc 1.81 (1.5-2.0cm) MV EPSS 1.3 (<0.5cm) Aortic Valve AoV Peak Immanuel. 148.3 cm/s AoV VTI 30.8 cm AO Peak GR. 8.8 mmHg AO Mean GR. 4 mmHg LVOT VTI 25.00 cm LVOT Peak Immanuel. 107.0 cm/s MARGOTH(VTI)/BSA 3.53 cm2/m2 MARGOTH (VTI) 3.53 cm2 AV DI 0.81 % Mitral Valve MV E Velocity 63.3 cm/s MV Peak Gr. 5 mmHg MV DECEL TIME 288 ms MV A Velocity 115.0 cm/s MV Mean Gr. 1 mmHg MV PHT 132 ms E/A Ratio 0.6 MVA (PHT) 1.67 cm2 MV VMax 115.8 cm/s MV VMean 51.9 cm/s MVA VTI 3.32 cm2 MV VTI 32.8 cm TDI Lateral E' P. V 9.30 cm/s E/Lateral E' 6.8 Pulmonary Valve PAEDP 12.16 mmHg Tricuspid Valve TR P. Velocity 223 cm/s RAP ESTIMATE 10 mmHg TR Peak Gr. 20 mmHg RVSP 30 mmHg LEFT VENTRICLE Normal LV size and wall thickness. Overall systolic function is normal. LVEF is 60-65%. RIGHT VENTRICLE RV is normal size and function. Elevated right heart pressures with an RVSP of 30 mmHg. ATRIA Left atrium is mildly dilated. AORTIC VALVE Trileaflet AV appears mildly sclerotic without stenosis. No insufficiency. MITRAL VALVE Mild mitral annular calcification without stenosis. Trace regurgitation by color and spectral flow Doppler. TRICUSPID VALVE The tricuspid valve is normal in structure with trace regurgitation by color and spectral flow Doppler. PULMONIC VALVE Pulmonic valve is grossly normal in structure with trace insufficiency. GREAT VESSELS Aortic root is mildly dilated (4.0 cm). The ascending aorta is normal in size. The IVC is normal in size and collapses >50% with inspiration. PERICARDIUM Normal pericardium. No effusion. Other Information Study Quality: Adequate Conclusion Normal LV size and wall thickness. Overall systolic function is normal. LVEF is 60-65%. RV is normal size and function. Elevated right heart pressures with an RVSP of 30 mmHg. Left atrium is mildly dilated. Trileaflet AV appears mildly sclerotic without stenosis. No insufficiency. Mild mitral annular calcification without stenosis. Trace regurgitation by color and spectral flow Doppler. The tricuspid valve is normal in structure with trace regurgitation by color and spectral flow Doppler. Pulmonic valve is grossly normal in structure with trace insufficiency. Aortic root is mildly dilated (4.0 cm). The ascending aorta is normal in size. Normal pericardium. No effusion.
[2025-03-22 08:24] LABS: MEAN PLATELET VOLUME 7.2 FL (7.4-10.4); RED CELL DISTRIBUTION WIDTH 16.7 % (11.5-14.5)
[2025-03-22 08:57] LABS: CHOL/HDL RATIO 2.5 (0.00-4.99); CREATININE 1.43 MG/DL (0.60-1.10); LDL CHOLESTEROL 52 MG/DL (50-100); TOTAL CARBON DIOXIDE 16.8 MMOL/L (24-32); eCRCL 33 ML/MIN; eGFR 47 ML/MIN
[2025-03-22 10:00] VITALS: BP 120/48; PULSE 55; RESP 13; TEMP 98.5; O2SAT 98
--- NOTE | 2025-03-22 12:11 | PROGRESS NOTE- Residence ---
Progress Note - Resident Providers to CC Resident Creating Document: MARYA SANCHEZ RES ~ Central Line/PICC still needed: N\A [place]oyos-Non Protocol [place]os Indications Met/Not Met: F/C Indications Not Met Antibiotic Timeout Antibiotic Ordered?: Yes Subjective Patient was examined bedside. He is hard of hearing. He is having around 10 bowel movements a day, bowel movements consists of greenish watery stools. No complaints of abdominal pain, fever/chills, nausea/vomiting. Resting comfortably in bed. No Acute symptoms overnight. Objective Vital Signs Date Time Temp Pulse Resp B/P (MAP) Pulse Ox O2 Delivery O2 Flow Rate FiO2 03/22/25 09:57 18 03/22/25 06:22 98.5 52 128/60 (82) 99 Room Air 03/21/25 07:30 0.0 Result Diagram: 03/22/25 0753 03/22/25 0753 General: Hard of hearing, Well alert, well oriented, not confused, not agitated, not in acute distress, well cooperated during the physical. HEENT: Conjunctive are pink, sclerae clear, no icterus, pupil is equal in both sides, reactive to light, no ear discharge, no pharyngeal erythema or an edema. Neck: Supple, no JVD, no lymphadenopathy and thyromegaly. Chest: Equal air entry on both lungs, no added sounds, no wheeze. Cardiovascular: S1-S2 regular sinus rhythm and, regular rate, no gallops, no rubs, no murmurs Abdomen: No visible peristalsis, Bowel sounds present on auscultation, soft, nontender, no guarding, no rigidity Extremities: No obvious deformities, 1+ pitting edema bilaterally, capillary refill intact, peripheral pulsations are intact on both sides Central Nervous System: No focal neurological deficits, no motor or sensory weakness in all 4 extremities, could move all 4 extremities, 2+ deep tendon reflexes, negative Babinski. Musculoskeletal: No joint swelling, deformities, inflammations, and no scoliosis and back tenderness Skin: Warm and dry. Coagulation Studies Laboratory Tests Test 03/20/25 12:35 Prothrombin Time 10.9 SECONDS (9.0-12.0) INR International Normalized Ratio 1.1 INR Activated Partial Thromboplast Time 30 SECONDS (22-32) Coagulation Comments Assessment Assessment This is an 84-year-old male who was a transfer from [facility]. He has been diagnosed with C diff colitis after extended antibiotic use for his complicated UTI. He is currently on oral vancomycin. Blood culture and urine cultures are negative. Awaiting ID recommendations Plan Plan C diff colitis, After extensive antibiotic use for complicated UTI Complicated UTI Metabolic acidosis due to diarrhea Patient currently does not meet SIRS criteria Still complains of burning micturition Vitals: Stable CBC shows no leukocytosis, CMP essentially normal. CT abdomen pelvis shows diffuse fluid-filled distention of small-bowel loops. Blood culture and urine culture no growth after 2 day Started the patient on oral vancomycin 125 mg p.o. q.6 with probiotics Inflammatory markers within the normal range ID consulted, awaiting recommendation Started the patient on D5 with 150 mEq of sodium bicarb. Acute exacerbation of CHF with preserved ejection fraction Hyperlipidemia Coronary artery disease status post 3 PTCA Orthopnea PND with elevated proBNP 4500 Troponin not elevated, EKG shows no ischemic changes Cardiogram shows normal left ventricle function with ejection fraction of 60% Patient does not look fluid overloaded, however Lasix has been withheld in view of his ongoing C diff colitis. We will start the patient on GDM T with Jardiance 10. Continue home medication atorvastatin 20 Hemoglobin A1c 5.3, lipid levels in the normal range. History of multiple malignancies, currently in remission Normocytic normochromic anemia Colon cancer status post resection and chemo Prostate cancer status post resection and chemo and radiation Bone cancer status post variation Complains of chronic bone pain, pain management with Dilaudid and Manton He gives history of chronic anemia to the above treatment. He gets frequent CBCs and Neupogen injections outpatient. Follow up with Oncology outpatient. ROHIT, most likely prerenal Age-related EGFR decline Creatinine improved to 1.43 today, BUN 44, EGFR 41 Ordered urine lytes to determine the etiology Generalized weakness associated with deconditioning Hypoalbuminemia Ensure protein shake, nutritious diet. Code status: Full code DVT prophylaxis: Heparin subcutaneous Analgesia/sedation: Morphine/Manton Line/tube: PIV GI prophylaxis: Protonix Nutrition: Heart healthy PT: Ordered. Prognosis: Guarded Disposition: Oral vancomycin, ID consulted Marya Sanchez MD PGY1, Internal Medicine [facility] Date of Service: Mar 22, 2025 Billing Provider: AYLA LÓPEZ MD, SHIVANI, RES Mar 22, 2025 12:11
[2025-03-22] MEDS: sodium bicarbonate 1meq/ml inj 150 ML in dextrose 5%-water 1,000 ML IV SCH (13:33)
[2025-03-22 18:00] VITALS: BP 141/91; PULSE 90; RESP 14; TEMP 98.6; O2SAT 96
[2025-03-22 22:00] VITALS: BP 123/52; PULSE 87; RESP 16; TEMP 98.8; O2SAT 98
[2025-03-23 06:26] LABS: MEAN PLATELET VOLUME 7.6 FL (7.4-10.4); RED CELL DISTRIBUTION WIDTH 15.9 % (11.5-14.5)
[2025-03-23 06:53] VITALS: BP 123/61; PULSE 54; RESP 14; TEMP 98.3; O2SAT 99
[2025-03-23 06:55] LABS: CREATININE 1.32 MG/DL (0.60-1.10); TOTAL CARBON DIOXIDE 23.1 MMOL/L (24-32); eCRCL 36 ML/MIN; eGFR 51 ML/MIN
[2025-03-23] MEDS: POTASSIUM CHLORIDE 20 MEQ/15 ML oral solution PO SCH (07:14)
[2025-03-23 07:31] VITALS: RESP 14; O2SAT 99
[2025-03-23 10:56] VITALS: BP 110/43; PULSE 53; RESP 18; TEMP 98.9; O2SAT 100
[2025-03-23] MEDS ORDERED: EMPA10TA PO (12:51)
[2025-03-23] MEDS ORDERED: VANC125C11 PO (12:51)
[2025-03-23] MEDS ORDERED: LACT1CAP26 PO (12:51)
--- NOTE | 2025-03-23 18:37 | DISCHARGE SUMMARY-Residence ---
Discharge Summary Providers to CC Resident Creating Document: ASPEN REYES, RES ~ Discharge Summary Admission Diagnosis: UTI Hospital Course DATE OF ADMISSION: 03/20/2025 DATE OF DISCHARGE: 03/23/2025 Discharge Diagnosis\Comment: C diff colitis, After extensive antibiotic use for complicated UTI SEPSIS RULED OUT Metabolic acidosis due to diarrhea Acute exacerbation of CHF with preserved ejection fraction Hyperlipidemia Coronary artery disease status post 3 PTCA History of multiple malignancies, currently in remission Normocytic normochromic anemia Colon cancer status post resection and chemo Prostate cancer status post resection and chemo and radiation Bone cancer status post variation ROHIT, most likely prerenal Age-related EGFR decline Generalized weakness associated with deconditioning Hypoalbuminemia Operations\Procedures: NONE Consultants: None Complications: None Condition on DC: Stable New Medications: Empagliflozin (Jardiance) 10 Mg Tablet 1 TAB PO DAILY for 30 Days, #30 TAB 0 Refills Vancomycin HCl (Vancocin HCl) 125 Mg Capsule 1 CAP PO Q6H for 12 Days, #48 CAP 0 Refills Lactobacillus Rhamnosus (Culturelle) 10 Billion Cell Capsule 31571 MMU PO BID for 30 Days, #60 CAP Continued Medications: Ferrous Sulfate (Ferrous Sulfate) 325 Mg (65 Mg Iron) Tablet 1 TAB PO DAILY, TAB 0 Refills Furosemide (Furosemide) 40 Mg Tablet 1 TAB PO DAILY Hydromorphone HCl (Hydromorphone HCl) 4 Mg Tablet 1 TAB PO Q4H PRN for pain Rosuvastatin Calcium (Rosuvastatin Calcium) 20 Mg Tablet 1 TAB PO DAILY, TAB 0 Refills Discharge Summary: HPI as per admitting physician Patient is a 84-year-old male, with history of multiple medical problems including chronic kidney disease, atrial fibrillation on Plavix and aspirin, coronary artery disease status post three stents, history of colon and prostate cancer, hypertension, history of urinary and stool incontinence, psoriasis, hypoalbuminemia, UTI Pseudomonas sensitive, CHF ejection fraction 67% 2021, dyslipidemia, anemia hemoglobin 11.2, umbilical hernia, presented today to emergency department chief complaint diarrhea associated with stool and urinary incontinence; in addition patient was brought in by EMS as a transfer from [facility] daughter is at bedside. Patient's initial complaint was some sore shortness of breath diarrhea or frequent urination with chronic UTIs currently being treated by primary care where he will be treated for UTI and a couple of weeks later have another 1. Patient also has history of prostate cancer. Patient has history of coronary artery disease, atrial fibrillation not on anticoagulation with his initial complaint being shortness of breath earlier at [facility]. Patient's daughter has noticed generalized weakness with falls. Patient was found to have acute kidney injury at [facility]. Patient's cystitis was found to be Pseudomonas aeruginosa with his antibiotic switched from Bactrim to Keflex. He was given a dose of Levaquin. Patient also has history of stent placement in 2008 and in 2020. Patient had a chest x-ray and a chest CT which was negative for pulmonary embolism. Patient was given aspirin and Lovenox at [facility]. Patient was transferred here for cystitis, acute kidney injury, elevated troponin NSTEMI, with significant cardiac history. Patient is currently experiencing diarrhea but denies shortness of breath currently. In emergency department patient was evaluated by physician was diagnosed with gastroenteritis, UTI, decision was made to admit patient for further evaluation and treatment, no additional complaint or concern. Hospital course An 84-year-old male patient who is a transfer from [facility], he was diagnosed with C diff colitis secondary to extensive antibiotic use for complicated UTI. Patient's CBC showed no leukocytosis, we initiated the patient on oral vancomycin 125 mg p.o. q.6 H with probiotics. Patient also had metabolic acidosis due to diarrhea, treated the patient with D5 with 150 mEq of sodium bicarb. Patient had acute exacerbation of congestive heart failure preserved ejection fraction, monitored patient's inputs and outputs and initiated the patient on GDM T drugs Jardiance 10 mg and continued patient's home medication atorvastatin 20 mg for his hyperlipidemia. Patient had mild ROHIT most likely prerenal vasomotor nephropathy, which slowly downtrended Significant imaging Abdominal CT 03/20/2025 No acute process in the chest. Moderate fat and bowel containing umbilical hernia. High-grade narrowing of bowel loop associated with hernia defect, superiorly. Nonspecific bowel-gas pattern with diffuse fluid-filled distention of small- bowel loops. Echocardiogram 03/21/2025 Normal LV size and wall thickness. Overall systolic function is normal. LVEF is 60-65%. RV is normal size and function. Elevated right heart pressures with an RVSP of 30 mmHg. Left atrium is mildly dilated. Trileaflet AV appears mildly sclerotic without stenosis. No insufficiency. Mild mitral annular calcification without stenosis. Trace regurgitation by color and spectral flow Doppler. The tricuspid valve is normal in structure with trace regurgitation by color and spectral flow Doppler. Pulmonic valve is grossly normal in structure with trace insufficiency. Aortic root is mildly dilated (4.0 cm). The ascending aorta is normal in size. Normal pericardium. No effusion. Physical examination the time of discharge General: Hard of hearing, Well alert, well oriented, not confused, not agitated, not in acute distress, well cooperated during the physical. HEENT: Conjunctive are pink, sclerae clear, no icterus, pupil is equal in both sides, reactive to light, no ear discharge, no pharyngeal erythema or an edema. Neck: Supple, no JVD, no lymphadenopathy and thyromegaly. Chest: Equal air entry on both lungs, no added sounds, no wheeze. Cardiovascular: S1-S2 regular sinus rhythm and, regular rate, no gallops, no rubs, no murmurs Abdomen: No visible peristalsis, Bowel sounds present on auscultation, soft, nontender, no guarding, no rigidity Extremities: No obvious deformities, 1+ pitting edema bilaterally, capillary refill intact, peripheral pulsations are intact on both sides Central Nervous System: No focal neurological deficits, no motor or sensory weakness in all 4 extremities, could move all 4 extremities, 2+ deep tendon reflexes, negative Babinski. Musculoskeletal: No joint swelling, deformities, inflammations, and no scoliosis and back tenderness Skin: Warm and dry. Vital Signs Date Time Temp Pulse Resp B/P (MAP) Pulse Ox O2 Delivery O2 Flow Rate FiO2 03/23/25 10:56 98.9 53 18 110/43 (65) 100 Room Air 03/22/25 21:40 0.0 Laboratory Tests Test 03/22/25 07:53 03/23/25 04:31 White Blood Count 4.5 X10'3 4.9 X10'3 Red Blood Count 3.07 X10'6 2.92 X10'6 Hemoglobin 10.1 g/dl 9.6 g/dl Hematocrit 29.5 % 27.3 % Mean Corpuscular Volume 96.0 FL 93.6 FL Mean Corpuscular Hemoglobin 32.8 PG 32.9 PG Mean Corpuscular Hemoglobin Concent 34.1 g/dL 35.2 g/dL Red Cell Distribution Width 16.7 % 15.9 % Platelet Count 297 X10'3 313 X10'3 Mean Platelet Volume 7.2 FL 7.6 FL Neutrophils (%) (Auto) 65.0 % 62.0 % Lymphocytes (%) (Auto) 16.4 % 16.8 % Monocytes (%) (Auto) 11.8 % 13.4 % Eosinophils (%) (Auto) 5.7 % 7.0 % Basophils (%) (Auto) 1.1 % 0.8 % Neutrophils # (Auto) 2.9 X10'3 3.0 X10'3 Lymphocytes # (Auto) 0.7 X10'3 0.8 X10'3 Monocytes # (Auto) 0.5 X10'3 0.7 X10'3 Eosinophils # (Auto) 0.3 X10'3 0.3 X10'3 Basophils # (Auto) 0.0 X10'3 0.0 X10'3 CBC Comment Sodium Level 144 MMOL/L 143 MMOL/L Potassium Level 4.5 MMOL/L 3.6 MMOL/L Chloride Level 117 MMOL/L 111 MMOL/L Carbon Dioxide Level 16.8 MMOL/L 23.1 MMOL/L Anion Gap 10 9 Blood Urea Nitrogen 32 MG/DL 30 MG/DL Creatinine 1.43 MG/DL 1.32 MG/DL Estimated GFR/1.73 m2 47 ML/MIN 51 ML/MIN BUN/Creatinine Ratio 22.4 22.7 Glucose Level 89 MG/DL 91 MG/DL Hemoglobin A1c 5.3 % Calcium Level 8.4 MG/DL 8.5 MG/DL Magnesium Level 2.2 MG/DL 2.1 MG/DL Total Bilirubin 0.2 MG/DL 0.3 MG/DL Aspartate Amino Transf (AST/SGOT) 14 U/L 13 U/L Alanine Aminotransferase (ALT/SGPT) 15 U/L 12 U/L Alkaline Phosphatase 48 IU/L 46 IU/L Total Protein 5.9 G/DL 5.6 G/DL Albumin 2.6 G/DL 2.5 G/DL Globulin 3.3 G/DL 3.1 G/DL Albumin/Globulin Ratio 0.8 0.8 Triglycerides Level 61 MG/DL Cholesterol Level 107 MG/DL LDL Cholesterol 52 MG/DL HDL Cholesterol 43 MG/DL Cholesterol/HDL Ratio 2.5 Chemistry Comments Discharge advise Follow up with the primary care doctor Kindly complete your antibiotic course and probiotics as prescribed Increase in probiotic food in your diet recommended We have initiated you on a new medication empagliflozin 10 mg for your congestive heart failure, kindly continue and discuss with your primary care doctor Return to ED in case of increase diarrhea or shortness of breaths *Problems/Diagnosis: (1) Diarrhea Status: Acute (2) Acute kidney injury Status: Acute Total Time Spent on D/C: > 30 Minutes Date of Service: Mar 23, 2025 Billing Provider: AYLA LÓPEZ MD, JAHNAVI, RES Mar 23, 2025 18:36
--- NOTE | 2025-03-23 21:00 | CONSULTATION ---
DATE OF CONSULTATION: 03/23/2025 DICTATING PHYSICIAN: Trung Aldrich MD REASON FOR CONSULTATION: I am seeing the patient at the request of Dr. gM for evaluation of Clostridioides difficile infection. HISTORY OF PRESENT ILLNESS: The patient is an 84-year-old male with a history of malignancy and urinary tract infection who was transferred here for a higher level of care with concern for acute kidney injury and potential cardiac issues. His troponin here is normal. Creatinine has improved at 1.3. He had recently been treated for a urinary tract infection by his primary care provider. He lives down at [place] and I believe he was transferred here from [place]. He did have some diarrhea when he came here and he was found to be positive on antigen testing for C. difficile. Toxin testing was actually negative. He is currently receiving oral vancomycin and he is no longer on broad-spectrum therapy. With regard to urinary symptoms, he states that he has a little bit of burning when he starts his stream. That burning fades and he denies any other discomfort. He does not have any abdominal pain. His diarrhea has been improving with oral vancomycin. He lives alone at home and he is wondering when he can get out of the hospital. PAST MEDICAL HISTORY: * Coronary artery disease with a history of percutaneous coronary intervention. * Prostate cancer. * Colon cancer. * Hypertension. * Dyslipidemia. PAST SURGICAL HISTORY: * Cholecystectomy. * Prostatectomy. * Partial colectomy. ALLERGIES: ATORVASTATIN. MEDICATIONS: * Vancomycin 125 mg every 6 hours. * Potassium. * Sodium bicarbonate infusion. * Pantoprazole. * Empagliflozin. * Rosuvastatin. * Ferrous sulfate. * Lactobacillus. * Pantoprazole. * Docusate. FAMILY HISTORY: Noncontributory. SOCIAL HISTORY: He states that he lives alone. I believe his granddaughter is involved in his care. He lives down in [place] and he is followed by Dr. Israel. I do not believe he smokes or drinks alcohol. PHYSICAL EXAMINATION: VITAL SIGNS: He is afebrile with stable vital signs. GENERAL: He is a pleasant elderly male lying in bed, looking stable. HEENT: Sclerae anicteric. Mouth is clear. NECK: Supple. LUNGS: Clear to auscultation bilaterally. HEART: Regular rate and rhythm. ABDOMEN: Soft, nontender, and nondistended. EXTREMITIES: No significant edema. LABORATORY DATA: White blood cell count is 4900, hemoglobin 9.6, platelets 313,000. Creatinine 1.3. Urinalysis only showed 5-10 white blood cells. Once again, C. difficile testing is positive by antigen, but negative for toxin. He did have a CT scan of the chest, abdomen, and pelvis that does show a nonspecific bowel gas pattern with some distended fluid-filled loops. He does have evidence of a hernia, but no evidence of colitis was mentioned. IMPRESSION: * Mildly symptomatic urinary tract infection. * Clostridioides difficile infection versus colonization. He did have significant diarrhea during his first 24 hours. We did talk about potential worsening of C. difficile infection with the use of broad spectrum antibiotics for other conditions. I did tell him that I think treatment of his mildly symptomatic urinary tract infection could be detrimental as it relates to C. difficile infection. He is clinically stable at this time and hopefully he can be discharged soon. RECOMMENDATIONS: He will continue forward with a course of oral vancomycin. He should receive 10-14 days of treatment. I would avoid treatment of the urinary tract at this time unless he becomes more symptomatic. If that happens in the future, then he may need treatment with oral vancomycin while he is receiving a broad spectrum antibiotic, but hopefully that can be avoided altogether. I thank you for allowing me to participate in this patient's care. Trung Aldrich MD TID: [id number] RECEIPT: [id number] LUIS ALBERTO
== END 2025-03-23 14:32 | disposition home or self-care (01) | DRG 371 ==
LOC: ER 09:41 → ED HOLD 12:16 → SUR 3N 03-21 06:45
PROVIDERS: ADMIT Family Medicine; ATTEND Family Medicine
DX: A04.72 Enterocolitis due to Clostridium difficile, not specified as recurrent (principal); I21.4 Non-ST elevation (NSTEMI) myocardial infarction; I50.33 Acute on chronic diastolic (congestive) heart failure; N17.0 Acute kidney failure with tubular necrosis; I13.0 Hypertensive heart and chronic kidney disease with heart failure and stage 1 through stage 4 chronic kidney disease, or unspecified chronic kidney disease; B96.5 Pseudomonas (aeruginosa) (mallei) (pseudomallei) as the cause of diseases classified elsewhere; E88.09 Other disorders of plasma-protein metabolism, not elsewhere classified; N30.90 Cystitis, unspecified without hematuria; N18.9 Chronic kidney disease, unspecified; D64.9 Anemia, unspecified; E78.5 Hyperlipidemia, unspecified; I25.10 Atherosclerotic heart disease of native coronary artery without angina pectoris; I48.91 Unspecified atrial fibrillation; Z85.46 Personal history of malignant neoplasm of prostate; Z95.5 Presence of coronary angioplasty implant and graft; Z88.8 Allergy status to other drugs, medicaments and biological substances; Z85.038 Personal history of other malignant neoplasm of large intestine; T36.95XA Adverse effect of unspecified systemic antibiotic, initial encounter; Y92.89 Other specified places as the place of occurrence of the external cause
CPT/HCPCS: 36415; 71250; 74176; 80048; 80053; 80061; 81001; 82272; 83036; 83605; 83735; 83880; 84100; 84145; 84484; 85025; 85610; 85730; 87040; 87045; 87046; 87081; 87088; 87324; 87449; 87493; 89055; 93005; 93306; 99285; A6258; G0378; J1956; J3490; J7030; J7070